=== PATIENT | male | born 1950 | race African-American/Black ===

== ENCOUNTER 2017-11-10 19:59 | Observation (INO) | payer MEDICARE, OTHER ==
[2017-11-10 20:10] VITALS: BP 235/105; PULSE 77; RESP 18; TEMP 98.7; O2SAT 94
[2017-11-10] MEDS ORDERED: SODIUM CHLORIDE 0.9% FLUSH 10 ML FLUSH IVF PRN (20:30)
[2017-11-10] MEDS ORDERED: ASPIRIN 81 MG CHEW TAB PO ONE (20:30)
[2017-11-10] MEDS ORDERED: LABETALOL HCL 100 MG/20 ML VIAL IV PUSH ONE (20:30)
--- NOTE | 2017-11-10 20:31 | PD ---
HPI Chief Complaint: Chest Pain Time Seen by Provider: 20:16 Travel History International Travel<30 days: No Contact w/Intl Traveler<30days: No Traveled to known affect area: No History of Present Illness HPI 67-year-old male with history of hypertension, end-stage renal disease, reported history of CHF, presents for evaluation of chest pain. He reports a prior to arrival he was sitting in the bathtub when he developed a chest tightness which lasted for 30 minutes and resolved prior to this examination. He has never experienced this before. He denies any radiating symptoms, nausea , vomiting, diaphoresis, dizziness, lightheadedness, cough, congestion, fevers, chills, abdominal pain. He reports that he moved here from [facility] 4 days ago. In [facility] he was receiving dialysis Mondays, Wednesdays, Fridays, so his last dialysis was yesterday. Here he is being transitioned to Tuesdays, , Saturdays. He is noted to be hypertensive-he takes hydralazine, carvedilol, and he reports that he has been compliant with his blood pressure regimen. He has no other complaints at this time. [facility] Past Medical History Cardiovascular Problems: Yes (HTN) Social History Alcohol Use: Yes Tobacco Use: No Allergies-Medications (Allergen,Severity, Reaction): Coded Allergies: No Known Allergies (Unverified , 11/10/17) Reported Meds & Prescriptions Reported Meds & Active Scripts Active Reported Carvedilol 25 Mg Tab 25 Mg BID Sensipar (Cinacalcet) 60 Mg Tab 60 Mg PO DAILY Fosrenol (Lanthanum Carbonate) 1,000 Mg Tab 1,000 Mg CHEW TIDPC Hydralazine HCl 25 Mg Tablet 25 Mg PO BID Review of Systems Except as stated in HPI: all other systems reviewed are Neg Physical Exam Narrative GENERAL: Well developed well-nourished male in no acute distress. SKIN: Warm and dry. HEAD: Atraumatic. Normocephalic. EYES: Right pupil round and reactive. 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 Mucous membranes pink and moist. NECK: Trachea midline. No JVD. CARDIOVASCULAR: Regular rate and rhythm. No murmur appreciated. RESPIRATORY: No accessory muscle use. Clear to auscultation. Breath sounds equal bilaterally. GASTROINTESTINAL: Abdomen soft, non-tender, nondistended. Hepatic and splenic margins not palpable. MUSCULOSKELETAL: No obvious deformities. No clubbing. No cyanosis. No edema. NEUROLOGICAL: Awake and alert. No obvious cranial nerve deficits. Motor grossly within normal limits. Normal speech. PSYCHIATRIC: Appropriate mood and affect; insight and judgment normal. Data Data Last Documented VS Vital Signs Date Time Temp Pulse Resp B/P (MAP) Pulse Ox O2 Delivery O2 Flow Rate FiO2 11/10/17 21:12 70 18 180/88 (118) 99 Nasal Cannula 2.00 11/10/17 20:10 98.7 Orders Orders Electrocardiogram (11/10/17 20:24) Basic Metabolic Panel (Bmp) (11/10/17 20:24) Ckmb (Isoenzyme) Profile (11/10/17 20:24) Complete Blood Count With Diff (11/10/17 20:24) Magnesium (Mg) (11/10/17 20:24) Prothrombin Time / Inr (Pt) (11/10/17 20:24) Act Partial Throm Time (Ptt) (11/10/17 20:24) Troponin I (11/10/17 20:24) Ecg Monitoring (11/10/17 20:24) Bilateral Bp Monitoring (11/10/17 20:24) Iv Access Insert/Monitor (11/10/17 20:24) Oximetry (11/10/17 20:24) Oxygen Administration (11/10/17 20:24) Sodium Chloride 0.9% Flush (Ns Flush) (11/10/17 20:30) Chest, Pa & Lat (11/10/17 20:24) Labetalol Inj (Trandate Inj) (11/10/17 20:30) Aspirin Chew (Aspirin Chew) (11/10/17 20:30) Nitroglycerin 2% Oint (Nitroglycerin 2% (11/10/17 20:45) Drug Screen, Random Urine (11/10/17 20:52) CKMB (11/10/17 21:00) CKMB% (11/10/17 21:00) Labetalol Inj (Trandate Inj) (11/10/17 21:48) Admit Order (Ed Use Only) (11/10/17 21:51) Labetalol Inj (Trandate Inj) (11/10/17 22:00) Activity Bed Rest With Brp (11/10/17 21:52) Vital Signs (Adult) Q4H (11/10/17 21:52) Cardiac Rhythm .As Directed (11/10/17 21:52) Notify Dr: Other .PRN (11/10/17 21:52) Notify DrRancho Parameters (11/10/17 21:52) Resp Oxygen Nasal Cannula (11/10/17 ) Ckmb (Isoenzyme) Profile (11/10/17 23:59) Ckmb (Isoenzyme) Profile (11/11/17 02:59) Troponin I (11/10/17 23:59) Troponin I (11/11/17 02:59) Electrocardiogram (11/10/17 23:59) Electrocardiogram (11/11/17 02:59) ^ Obtain (11/10/17 21:52) Sodium Chloride 0.9% Flush (Ns Flush) (11/10/17 22:00) Sodium Chloride 0.9% Flush (Ns Flush) (11/11/17 09:00) Npo After Midnight W/ Po Meds (11/11/17 Breakfast) Labs Laboratory Tests Test 11/10/17 21:00 White Blood Count 5.6 TH/MM3 Red Blood Count 3.50 MIL/MM3 Hemoglobin 10.9 GM/DL Hematocrit 32.7 % Mean Corpuscular Volume 93.5 FL Mean Corpuscular Hemoglobin 31.1 PG Mean Corpuscular Hemoglobin Concent 33.2 % Red Cell Distribution Width 18.4 % Platelet Count 187 TH/MM3 Mean Platelet Volume 8.9 FL Neutrophils (%) (Auto) 65.2 % Lymphocytes (%) (Auto) 16.2 % Monocytes (%) (Auto) 13.1 % Eosinophils (%) (Auto) 4.7 % Basophils (%) (Auto) 0.8 % Neutrophils # (Auto) 3.6 TH/MM3 Lymphocytes # (Auto) 0.9 TH/MM3 Monocytes # (Auto) 0.7 TH/MM3 Eosinophils # (Auto) 0.3 TH/MM3 Basophils # (Auto) 0.0 TH/MM3 CBC Comment DIFF FINAL Differential Comment Prothrombin Time 10.2 SEC Prothromb Time International Ratio 1.0 RATIO Activated Partial Thromboplast Time 26.2 SEC Blood Urea Nitrogen 43 MG/DL Creatinine 10.10 MG/DL Random Glucose 125 MG/DL Calcium Level 9.8 MG/DL Magnesium Level 2.3 MG/DL Sodium Level 140 MEQ/L Potassium Level 4.6 MEQ/L Chloride Level 99 MEQ/L Carbon Dioxide Level 31.4 MEQ/L Anion Gap 10 MEQ/L Estimat Glomerular Filtration Rate 6 ML/MIN Total Creatine Kinase 166 U/L Troponin I 0.05 NG/ML MDM Medical Decision Making Medical Screen Exam Complete: Yes Emergency Medical Condition: Yes Medical Record Reviewed: Yes Differential Diagnosis Angina, acute coronary syndrome, pneumothorax, pericarditis, myocarditis, aortic dissection, pulmonary embolism, hypertensive urgency, hypertensive emergency Narrative Course The patient was placed on ECG monitoring pulse oximetry. Twelve-lead EKG was obtained. Lab work, chest x-ray has been ordered. The patient will be given IV labetalol. He was given nitro paste. Lab work has been reviewed, Hemoglobin is 10.9, creatinine is 10.10, BUN is 43, consistent with his history of end-stage renal disease. Initial cardiac enzymes are negative. Given his risk factors including age, end-stage renal disease, hypertension, At this point in time the plan would be to admit the patient and the chest pain center for serial cardiac enzymes and rule out purposes. He is agreeable. He remains chest pain-free during his hospital stay. Diagnosis Primary Impression: Chest pain Admitting Information Admitting Physician Requests: Paul Hernandez Nov 10, 2017 20:31
[2017-11-10 20:32] VITALS: BP 195/91; PULSE 79; RESP 18; O2SAT 98
[2017-11-10] MEDS ORDERED: NITROGLYCERIN 2% OINT 1 GM PACKET TOP ONE (20:45)
[2017-11-10 21:12] VITALS: BP 180/88; PULSE 70; RESP 18; O2SAT 99
[2017-11-10 21:14] LABS: AUTOMATED NEUTROPHIL # 3.6 TH/MM3 (1.8-7.7); BASOPHIL % 0.8 % (0.0-2.0); EOSINOPHIL # 0.3 TH/MM3 (0-0.4); EOSINOPHIL % 4.7 % (0.0-4.0); HEMATOCRIT 32.7 % (39.0-51.0); HEMOGLOBIN 10.9 GM/DL (13.0-17.0); LYMPH % 16.2 % (9.0-44.0); LYMPHOCYTE # 0.9 TH/MM3 (1.0-4.8); MEAN CELL VOLUME 93.5 FL (80.0-100.0); MEAN CORPUSCULAR HEMOGLOBIN 31.1 PG (27.0-34.0); MEAN CORPUSCULAR HGB CONC 33.2 % (32.0-36.0); MEAN PLATELET VOLUME 8.9 FL (7.0-11.0); MONO % 13.1 % (0.0-8.0); MONOCYTE # 0.7 TH/MM3 (0-0.9); NEUT % 65.2 % (16.0-70.0); PLATELET COUNT 187 TH/MM3 (150-450); RED CELL DISTRIBUTION WIDTH 18.4 % (11.6-17.2); WHITE BLOOD COUNT 5.6 TH/MM3 (4.0-11.0)
[2017-11-10] MEDS ORDERED: FOSR1000 CHEW (21:20)
[2017-11-10] MEDS ORDERED: SENS60TA PO (21:20)
[2017-11-10] MEDS ORDERED: CARV25TA (21:20)
[2017-11-10] MEDS ORDERED: HYDR-3799 PO (21:20)
[2017-11-10 21:27] LABS: PROTHROMBIN TIME - PATIENT 10.2 SEC (9.8-11.6)
[2017-11-10 21:36] LABS: BICARBONATE 31.4 MEQ/L (21.0-32.0); BLOOD UREA NITROGEN 43 MG/DL (7-18); CALCIUM 9.8 MG/DL (8.5-10.1); CHLORIDE 99 MEQ/L (98-107); GLOMERULAR FILTRATION RATE 6 ML/MIN (>89); GLUCOSE,RANDOM 125 MG/DL (74-106); MAGNESIUM 2.3 MG/DL (1.5-2.5); SODIUM (NA) 140 MEQ/L (136-145)
[2017-11-10 21:40] LABS: TROPONIN I 0.05 NG/ML (0.02-0.05)
--- NOTE | 2017-11-10 21:41 | RADRPT ---
EXAM DATE/TIME: 11/10/2017 20:45 [facility] COMPARISON: No previous studies available for comparison. INDICATIONS : Chest pain. MEDICAL HISTORY : None. SURGICAL HISTORY : None. ENCOUNTER: Initial ACUITY: 1 day PAIN SCORE: 10/10 LOCATION: Bilateral chest FINDINGS: PA and lateral views of the chest demonstrate the lungs to be symmetrically aerated without evidence of mass, infiltrate or effusion. The cardiomediastinal contours are unremarkable. Osseous structure s are intact. CONCLUSION: 1. No acute cardiopulmonary disease. Kt Contreras MD on November 10, 2017 at 21:39 Board Certified Radiologist. This report was verified electronically.
[2017-11-10] MEDS ORDERED: LABETALOL HCL 100 MG/20 ML VIAL IV PUSH STA (21:48)
[2017-11-10] MEDS ORDERED: LABETALOL HCL 100 MG/20 ML VIAL IV PUSH PRN (22:00)
[2017-11-10] MEDS ORDERED: hydrALAZINE HCL 20 MG/ML VIAL IV PUSH ONE (22:00)
[2017-11-10] MEDS ORDERED: SODIUM CHLORIDE 0.9% FLUSH 10 ML FLUSH IV FLUSH PRN (22:00)
[2017-11-10 22:30] VITALS: BP 183/88; O2SAT 100
[2017-11-10 22:33] VITALS: BP 167/76; PULSE 73; RESP 18; O2SAT 98
[2017-11-10] MEDS: cloNIDine HCL 0.2 MG TAB PO SCH (22:33)
[2017-11-11] VITALS (7 sets, daily range): BP systolic 153–166; BP diastolic 70–78; PULSE 53–97; RESP 15–20; TEMP 97.5–98; O2SAT 95–99
[2017-11-11 01:03] LABS: TROPONIN I 0.05 NG/ML (0.02-0.05)
[2017-11-11 05:19] LABS: TROPONIN I 0.05 NG/ML (0.02-0.05)
[2017-11-11] MEDS: cloNIDine HCL 0.2 MG TAB PO SCH (06:35)
[2017-11-11] MEDS ORDERED: hydrALAZINE HCL 25 MG TAB PO SCH (09:00)
[2017-11-11] MEDS ORDERED: CARVEDILOL 12.5 MG TAB PO SCH (09:00)
[2017-11-11] MEDS ORDERED: SODIUM CHLORIDE 0.9% FLUSH 10 ML FLUSH IV FLUSH SCH (09:00)
[2017-11-11] MEDS ORDERED: LANTHANUM CARBONATE 500 MG CHEWABLE TABLET CHEW SCH (09:30)
--- NOTE | 2017-11-11 09:52 | HHI.HP ---
HPI Primary Care Physician No Primary Care Physician Chief Complaint Chest pain History of Present Illness This is a 67-year-old male that presents to ED with history of end-stage renal disease and having dialysis on Tuesdays and Saturdays, congestive heart failure, hypertension that presents to ED with complaint of chest discomfort. States that he developed a pressure across the chest 6:00 yesterday evening while eating a bath. It lasted between 30 minutes to an hour. Denies associated shortness of breath, nausea, or diaphoresis. States he had a similar discomfort a couple weeks ago and was diagnosed with congestive heart failure. States he had a normal stress test at that time. Voices compliance of medications. States he is free of chest discomfort at this time. Denies noticeable weight gain. Has not noticed any swelling in his legs. Review of Systems General: Patient denies fevers, chills, and recent travel. HEENT: Patient denies headache, sore throat, difficulty swallowing. Cardiovascular: Has the chest discomfort as mentioned above. Denies sensation of heart beating rapidly or irregularly. No syncope. Respiratory: Denies shortness of breath or inspirational chest discomfort. Denies coughing wheezing or hemoptysis. GI: Patient denies nausea, vomiting, diarrhea, abdominal pain, bloody stools. Musculoskeletal: Patient denies joint pain or edema. Denies calf pain or edema. Neurovascular: Patient denies numbness, tingling, weakness in extremities. Denies headache. Endocrine: Denies polyuria and polydipsia. Hematologic: Denies easy bruising. Skin: Denies rash or itching. 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 Hypertension. Denies hyperlipidemia, diabetes, and known CAD. 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 Reported Medications Reported Meds & Active Scripts Active Reported Carvedilol 25 Mg Tab 25 Mg BID Sensipar (Cinacalcet) 60 Mg Tab 60 Mg PO DAILY Fosrenol (Lanthanum Carbonate) 1,000 Mg Tab 1,000 Mg CHEW TIDPC Hydralazine HCl 25 Mg Tablet 25 Mg PO BID Active Ordered Medications Current Medications Medications (Trade) Dose Ordered Sig/[place]rence Route Start Time Stop Time Status Last Admin (NS Flush) 2 ml UNSCH PRN IVF 11/10/17 20:30 (NS Flush) 2 ml UNSCH PRN IV FLUSH 11/10/17 22:00 (NS Flush) 2 ml BID IV FLUSH 11/11/17 09:00 (Catapres) 0.2 mg Q8HR PO 11/10/17 22:30 11/11/17 06:35 (Coreg) 25 mg BID PO 11/11/17 09:00 (Apresoline) 25 mg BID PO 11/11/17 09:00 (Fosrenol Chew) 1,000 mg TIDPC CHEW 11/11/17 09:30 (Sensipar) 60 mg DAILY PO 11/11/17 10:00 Family History Unknown of his family cardiac history. Social History Quit smoking greater than 5 years ago. Prior that he would smoke proximal half to one pack of cigars daily for 30 years. Denies alcohol or illicit drugs. Physical Exam Vital Signs Vital Signs Date Time Temp Pulse Resp B/P (MAP) Pulse Ox O2 Delivery O2 Flow Rate FiO2 11/11/17 07:19 97.6 58 20 166/75 (105) 99 11/11/17 03:38 98.0 65 17 159/72 (101) 95 11/11/17 03:14 62 11/11/17 00:51 82 11/11/17 00:32 97.5 97 15 153/70 (97) 95 11/10/17 23:40 11/10/17 22:33 73 18 167/76 (106) 98 Room Air 2.00 11/10/17 22:30 100 Nasal Cannula 2.00 11/10/17 21:12 70 18 180/88 (118) 99 Nasal Cannula 2.00 11/10/17 20:32 79 18 195/91 (125) 98 Nasal Cannula 2.00 11/10/17 20:32 94 Nasal Cannula 2.00 11/10/17 20:10 98.7 77 18 235/105 (148) 94 Physical Exam GENERAL: This is a well-nourished, well-developed patient, in no apparent distress. Patient speaks in clear complete sentences. Patient is pleasant. HEENT: Head is atraumatic and normocephalic. Neck is supple without lymphadenopathy and trachea is midline. No JVD or carotid bruits. CARDIOVASCULAR: Regular rate and rhythm without murmurs, gallops, or rubs. RESPIRATORY: Clear to auscultation. Breath sounds equal bilaterally. No wheezes , rales, or rhonchi. Chest wall is nontender. No use of accessory muscles. GASTROINTESTINAL: Abdomen is nontender, nondistended. Abdomen soft. No obvious pulsatile mass or bruit. No CVA tenderness. Strong femoral pulses bilaterally. Normal bowel sounds in all quadrants. MUSCULOSKELETAL: Patient is moving upper and lower extremities freely. No calf tenderness or edema, no Homans sign. Strong pulses in upper and lower extremities. NEUROLOGICAL: Patient is alert and oriented. Cranial nerves 2-12 are grossly intact. No focal deficits and speech is clear. SKIN: No rash and turgor is normal. Laboratory Laboratory Tests Test 11/10/17 21:00 11/11/17 00:20 11/11/17 03:45 White Blood Count 5.6 Red Blood Count 3.50 Hemoglobin 10.9 Hematocrit 32.7 Mean Corpuscular Volume 93.5 Mean Corpuscular Hemoglobin 31.1 Mean Corpuscular Hemoglobin Concent 33.2 Red Cell Distribution Width 18.4 Platelet Count 187 Mean Platelet Volume 8.9 Neutrophils (%) (Auto) 65.2 Lymphocytes (%) (Auto) 16.2 Monocytes (%) (Auto) 13.1 Eosinophils (%) (Auto) 4.7 Basophils (%) (Auto) 0.8 Neutrophils # (Auto) 3.6 Lymphocytes # (Auto) 0.9 Monocytes # (Auto) 0.7 Eosinophils # (Auto) 0.3 Basophils # (Auto) 0.0 CBC Comment DIFF FINAL Differential Comment Prothrombin Time 10.2 Prothromb Time International Ratio 1.0 Activated Partial Thromboplast Time 26.2 Blood Urea Nitrogen 43 Creatinine 10.10 Random Glucose 125 Calcium Level 9.8 Magnesium Level 2.3 Sodium Level 140 Potassium Level 4.6 Chloride Level 99 Carbon Dioxide Level 31.4 Anion Gap 10 Estimat Glomerular Filtration Rate 6 Total Creatine Kinase 166 140 146 Creatine Kinase MB 1.8 1.6 1.3 Troponin I 0.05 0.05 0.05 Result Diagram: 11/10/17209911/10/172099 Imaging Last 48 hours Impressions Chest X-Ray 11/10/172023 Signed Impressions: Service Date/Time: Friday, November 10, 2017 20:45 - CONCLUSION: 1. No acute cardiopulmonary disease. Kt Contreras MD Course EKGs are sinus rhythm without significant ST segment depressions or elevations. Caprini VTE Risk Assessment Caprini VTE Risk Assessment: Mod/High Risk (score >= 2) Caprini Risk Assessment Model Point Value = 1 Point Value = 2 Point Value = 3 Point Value = 5 Age 41-60 Minor surgery BMI > 25 kg/m2 Swollen legs Varicose veins or History of unexplained or recurrent spontaneous Oral contraceptives or hormone replacement Sepsis (< 1 month) Serious lung disease, including pneumonia (< 1 month) Abnormal pulmonary function Acute myocardial infarction Congestive heart failure (< 1 month) History of inflammatory bowel disease Medical patient at bed rest Age 61-74 Arthroscopic surgery Major open surgery (> 45 min) Laparoscopic surgery (> 45 min) Malignancy Confined to bed (> 72 hours) Immobilizing plaster cast Central venous access Age >= 75 History of VTE Family history of VTE Factor V Leiden Prothrombin 30930A Lupus anticoagulant Anticardiolipin antibodies Elevated serum homocysteine Heparin-induced thrombocytopenia Other congenital or acquired thrombophilia Stroke (< 1 month) Elective arthroplasty Hip, pelvis, or leg fracture Acute spinal cord injury (< 1 month) Prophylaxis Regimen Total Risk Factor Score Risk Level Prophylaxis Regimen 0-1 Low Early ambulation 2 Moderate Order ONE of the following: *Sequential Compression Device (SCD) *Heparin 5000 units SQ BID 3-4 Higher Order ONE of the following medications: *Heparin 5000 units SQ TID *Enoxaparin/Lovenox 40 mg SQ daily (WT < 150 kg, CrCl > 30 mL/min) *Enoxaparin/Lovenox 30 mg SQ daily (WT < 150 kg, CrCl > 10-29 mL/min) *Enoxaparin/Lovenox 30 mg SQ BID (WT < 150 kg, CrCl > 30 mL/min) AND/OR *Sequential Compression Device (SCD) 5 or more Highest Order ONE of the following medications: *Heparin 5000 units SQ TID (Preferred with Epidurals) *Enoxaparin/Lovenox 40 mg SQ daily (WT < 150 kg, CrCl > 30 mL/min) *Enoxaparin/Lovenox 30 mg SQ daily (WT < 150 kg, CrCl > 10-29 mL/min) *Enoxaparin/Lovenox 30 mg SQ BID (WT < 150 kg, CrCl > 30 mL/min) AND *Sequential Compression Device (SCD) Assessment and Plan Assessment and Plan * Chest pain: Patient has had serial cardiac enzymes and EKGs for ruling out purposes. He was seen by Dr. Kt Tellez of cardiology in the chest pain center. We were able to obtain records from his chemical stress test dated 10/27 and were read as no scintigraphic evidence of stress-induced ischemia. Inferior wall fixed abnormality probably representing a combination of diaphragm and GI attenuation. Mild left ventricular enlargement with left ventricular ejection fraction calculated at 47%. There will be no further cardiac testing. At this time patient will be discharged home with instructions to follow-up with PCP and nephrology. Return to ED for interval issues. * End-stage renal disease: Patient is scheduled for his dialysis tomorrow, he has dialysis on Tuesdays and Thursday. 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 * Hypertension: Continue medications. Patient is stable at this time. He is agreeable to this plan. Luis Rogers Nov 11, 2017 09:52
--- NOTE | 2017-11-11 09:55 | HHI.DCPOC ---
Discharge Care Plan Diagnosis: (1) Chest pain (2) ESRD (end stage renal disease) (3) Hypertension Goals to Promote Your Health CONTINUE DIALYSIS SCHEDULED. * To prevent worsening of your condition and complications * To maintain your health at the optimal level Directions to Meet Your Goals Take your medications as prescribed Follow your dietary instruction Follow activity as directed Keep your appointments as scheduled Take your immunizations and boosters as scheduled If your symptoms worsen call your PCP, if no PCP go to Urgent Care Center or Emergency Room Smoking is Dangerous to Your Health. Avoid second hand smoke Call the 24-hour hour crisis hotline for domestic abuse at Luis Rogers Nov 11, 2017 09:55
[2017-11-11] MEDS ORDERED: CINACALCET HYDROCHLORIDE 30 MG TAB PO SCH (10:00)
--- NOTE | 2017-11-11 16:02 | EKG ---
Date Performed: 11/11/2017 Time Performed: 00:46:44 PTAGE: 67 years EKG: SINUS BRADYCARDIA VOLTAGE CRITERIA FOR LVH ABNORMAL ECG PREVIOUS TRACING : 11/10/2017 20.34 Since previous tracing, no significant change noted DOCTOR: Kt Tellez Interpretating Date/Time 11/11/2017 16:01:46
--- NOTE | 2017-11-11 16:05 | EKG ---
Date Performed: 11/10/2017 Time Performed: 20:34:03 PTAGE: 67 years EKG: Sinus rhythm POSSIBLE LEFT ATRIAL ENLARGEMENT POSSIBLE LEFT VENTRICULAR HYPERTROPHY ABNORMAL ECG NO PREVIOUS TRACING DOCTOR: Kt Tellez Interpretating Date/Time 11/11/2017 16:02:56
--- NOTE | 2017-11-11 16:06 | EKG ---
Date Performed: 11/11/2017 Time Performed: 05:31:46 PTAGE: 67 years EKG: SINUS BRADYCARDIA VOLTAGE CRITERIA FOR LVH ABNORMAL ECG PREVIOUS TRACING : 11/11/2017 00.46 Since previous tracing, no significant change noted DOCTOR: Kt Tellez Interpretating Date/Time 11/11/2017 16:04:52
== END 2017-11-11 12:52 | disposition home or self-care (01) ==
LOC: NEPE 19:59 → NEDA 21:53 → NEPFCDU 23:58
PROVIDERS: ADMIT Internal Medicine Interventional Cardiology; ATTEND Internal Medicine Interventional Cardiology
DX: R07.89 Other chest pain (principal); I13.2 Hypertensive heart and chronic kidney disease with heart failure and with stage 5 chronic kidney disease, or end stage renal disease; I50.9 Heart failure, unspecified; N18.6 End stage renal disease; R00.1 Bradycardia, unspecified; R94.31 Abnormal electrocardiogram [ECG] [EKG]; Z99.2 Dependence on renal dialysis; Z79.899 Other long term (current) drug therapy; Z90.01 Acquired absence of eye
CPT/HCPCS: 71046; 80048; 82550; 82552; 83735; 84484; 85025; 85610; 85730; 93005; 96374; 96375; 99285; G0378; J0360

== ENCOUNTER 2017-11-29 00:51 | Emergency (ER) | payer MEDICARE, OTHER ==
[~2017-11-29] VITALS: Ht 175.3 cm; Wt 84.0 kg
[~2017-11-29 00:51] MED LIST: CARV25TA; FOSR1000 CHEW; HYDR-3799 PO; SENS60TA PO
[2017-11-29 01:21] VITALS: BP 216/99; PULSE 86; RESP 18; TEMP 98.4; O2SAT 98
[2017-11-29 03:07] VITALS: BP 203/98; PULSE 83; RESP 16; O2SAT 100
[2017-11-29 04:00] VITALS: BP 213/97; PULSE 80; RESP 16; O2SAT 100
[2017-11-29] MEDS ORDERED: ACETAMINOPHEN 325 MG TAB PO ONE (04:30)
[2017-11-29] MEDS ORDERED: CYCLOBENZAPRINE HCL 10 MG TAB PO ONE (04:30)
[2017-11-29 05:44] LABS: ALT (GPT) 14 U/L (12-78)
[2017-11-29 05:46] LABS: ALKALINE PHOSPHATASE 75 U/L (45-117); TOTAL BILIRUBIN ADULT 0.4 MG/DL (0.2-1.0); TOTAL PROTEIN 7.2 GM/DL (6.4-8.2)
[2017-11-29 05:54] LABS: ALBUMIN 3.2 GM/DL (3.4-5.0); AST (GOT) 19 U/L (15-37); BICARBONATE 24.8 MEQ/L (21.0-32.0); BLOOD UREA NITROGEN 31 MG/DL (7-18); CALCIUM 9.6 MG/DL (8.5-10.1); CHLORIDE 101 MEQ/L (98-107); GLOMERULAR FILTRATION RATE 9 ML/MIN (>89); GLUCOSE,RANDOM 88 MG/DL (74-106); SODIUM (NA) 138 MEQ/L (136-145)
[2017-11-29 06:19] LABS: AUTOMATED NEUTROPHIL # 6.4 TH/MM3 (1.8-7.7); BASOPHIL # 0.1 TH/MM3 (0-0.2); BASOPHIL % 0.6 % (0.0-2.0); EOSINOPHIL # 0.3 TH/MM3 (0-0.4); EOSINOPHIL % 2.9 % (0.0-4.0); HEMATOCRIT 30.3 % (39.0-51.0); HEMOGLOBIN 10.3 GM/DL (13.0-17.0); LYMPH % 11.1 % (9.0-44.0); MEAN CELL VOLUME 91.1 FL (80.0-100.0); MEAN CORPUSCULAR HEMOGLOBIN 30.8 PG (27.0-34.0); MEAN CORPUSCULAR HGB CONC 33.8 % (32.0-36.0); MEAN PLATELET VOLUME 8.8 FL (7.0-11.0); MONO % 11.3 % (0.0-8.0); NEUT % 74.1 % (16.0-70.0); PLATELET COUNT 144 TH/MM3 (150-450); RED BLOOD COUNT 3.33 MIL/MM3 (4.50-5.90); RED CELL DISTRIBUTION WIDTH 18.2 % (11.6-17.2); WHITE BLOOD COUNT 8.7 TH/MM3 (4.0-11.0)
--- NOTE | 2017-11-29 06:33 | RADRPT ---
EXAM DATE/TIME: 11/29/2017 05:47 [facility] COMPARISON: No previous studies available for comparison. INDICATIONS : Left groin pain. ORAL CONTRAST: No oral contrast ingested. RADIATION DOSE: 13.58 CTDIvol (mGy) MEDICAL HISTORY : Hypertension. Renal failure, chronic. SURGICAL HISTORY : Colostomy and reversal ENCOUNTER: Initial ACUITY: 1 day PAIN SCALE: 10/10 LOCATION: pelvis TECHNIQUE: Volumetric scanning of the pelvis was performed. Using automated exposure control and adjustment of the mA and/or kV according to patient size, radiation dose was kept as low as reasonably achievable t o obtain optimal diagnostic quality images. DICOM format image data is available electronically for review and comparison. FINDINGS: BOWEL/MESENTERY: The visualized small and large bowel demonstrate no acute abnormality. There is no free fluid. Some d iverticula identified in the descending colon. BLADDER: There is no wall thickening or mass. RETROPERITONEUM: There is no aneurysm or lymphadenopathy. REPRODUCTIVE: Within normal limits. INGUINAL: There is no lymphadenopathy or hernia. MUSCULOSKELETAL: Within normal limits for patient age. Surgical clips in the region of the left lower abdominal quadra nt are probably associated with the reported history of ostomy reversal CONCLUSION: No acute pelvic process to explain current clinical symptoms.. Alber Wong MD on November 29, 2017 at 6:30 Board Certified Radiologist. This report was verified electronically.
[2017-11-29 07:17] VITALS: BP 198/95; PULSE 81; RESP 18; O2SAT 98
[2017-11-29] MEDS ORDERED: CYCL10TA PO (08:05)
--- NOTE | 2017-11-29 08:05 | PD ---
HPI Chief Complaint: Abdominal Pain Time Seen by Provider: 04:10 Travel History International Travel<30 days: No Contact w/Intl Traveler<30days: No Traveled to known affect area: No History of Present Illness HPI Patient is a 67-year-old male who comes in complaining of left groin pain. He says it started today while he was at dialysis. He says he had to repeatedly close the lounge chair with his legs. He denies any direct injury. He denies any lump or rash to the area. He denies any fever or chills. Denies any nausea or vomiting. He did not take anything for pain. Severity is mild to moderate. PFSH Past Medical History Cardiovascular Problems: Yes (HTN) Diminished Hearing: No Hypertension: Yes Inguinal Hernia: Yes Implanted Vascular Access Dvce: Yes (left upper arm fistula ) Renal Failure: Yes Tetanus Vaccination: < 5 Years Influenza Vaccination: Yes Past Surgical History Eye Surgery: Yes (left eye removal ) Genitourinary Surgery: Yes (colostomy reversal) Social History Alcohol Use: Yes (occassional wine) Tobacco Use: No Substance Use: No Allergies-Medications (Allergen,Severity, Reaction): Coded Allergies: No Known Allergies (Unverified , 11/29/17) Reported Meds & Prescriptions Reported Meds & Active Scripts Active Reported Carvedilol 25 Mg Tab 25 Mg BID Sensipar (Cinacalcet) 60 Mg Tab 60 Mg PO DAILY Fosrenol (Lanthanum Carbonate) 1,000 Mg Tab 1,000 Mg CHEW TIDPC Hydralazine HCl 25 Mg Tablet 25 Mg PO BID Review of Systems Except as stated in HPI: all other systems reviewed are Neg General / Constitutional: No: Fever, Chills HENT: No: Headaches, Lightheadedness Cardiovascular: No: Chest Pain or Discomfort Respiratory: No: Shortness of Breath Gastrointestinal: No: Nausea, Vomiting Genitourinary: No: Dysuria Musculoskeletal: Positive: Pain Skin: No Rash, No Change in Pigmentation Physical Exam Narrative GENERAL: Awake and alert, no acute distress. SKIN: Focused skin assessment warm/dry. No rashes or signs of infection. HEAD: Atraumatic. Normocephalic. EYES: Pupils equal and round. No scleral icterus. ENT: No nasal bleeding or discharge. Mucous membranes pink and moist. NECK: Trachea midline. No JVD. CARDIOVASCULAR: Regular rate and rhythm. No murmur appreciated. RESPIRATORY: No accessory muscle use. Clear to auscultation. Breath sounds equal bilaterally. GASTROINTESTINAL: Abdomen soft, non-tender, nondistended. No evidence of hernia. MUSCULOSKELETAL: No obvious deformities. No clubbing. No cyanosis. No edema. Pain with movement of the left hip. NEUROLOGICAL: Awake and alert. No obvious cranial nerve deficits. Motor grossly within normal limits. Normal speech. PSYCHIATRIC: Appropriate mood and affect; insight and judgment normal. Data Data Last Documented VS Vital Signs Date Time Temp Pulse Resp B/P (MAP) Pulse Ox O2 Delivery O2 Flow Rate FiO2 11/29/17 07:17 81 18 198/95 (129) 98 Room Air 11/29/17 01:21 98.4 Orders Orders Complete Blood Count With Diff (11/29/17 04:23) Comprehensive Metabolic Panel (11/29/17 04:23) Ct Pelvis W/O Iv Contrast (11/29/17 ) Acetaminophen (Tylenol) (11/29/17 04:30) Cyclobenzaprine (Flexeril) (11/29/17 04:30) Labs Laboratory Tests Test 11/29/17 04:30 11/29/17 05:10 White Blood Count 8.7 TH/MM3 Red Blood Count 3.33 MIL/MM3 Hemoglobin 10.3 GM/DL Hematocrit 30.3 % Mean Corpuscular Volume 91.1 FL Mean Corpuscular Hemoglobin 30.8 PG Mean Corpuscular Hemoglobin Concent 33.8 % Red Cell Distribution Width 18.2 % Platelet Count 144 TH/MM3 Mean Platelet Volume 8.8 FL Neutrophils (%) (Auto) 74.1 % Lymphocytes (%) (Auto) 11.1 % Monocytes (%) (Auto) 11.3 % Eosinophils (%) (Auto) 2.9 % Basophils (%) (Auto) 0.6 % Neutrophils # (Auto) 6.4 TH/MM3 Lymphocytes # (Auto) 1.0 TH/MM3 Monocytes # (Auto) 1.0 TH/MM3 Eosinophils # (Auto) 0.3 TH/MM3 Basophils # (Auto) 0.1 TH/MM3 CBC Comment DIFF FINAL Differential Comment Blood Urea Nitrogen 31 MG/DL Creatinine 7.20 MG/DL Random Glucose 88 MG/DL Total Protein 7.2 GM/DL Albumin 3.2 GM/DL Calcium Level 9.6 MG/DL Alkaline Phosphatase 75 U/L Aspartate Amino Transf (AST/SGOT) 19 U/L Alanine Aminotransferase (ALT/SGPT) 14 U/L Total Bilirubin 0.4 MG/DL Sodium Level 138 MEQ/L Potassium Level 4.3 MEQ/L Chloride Level 101 MEQ/L Carbon Dioxide Level 24.8 MEQ/L Anion Gap 12 MEQ/L Estimat Glomerular Filtration Rate 9 ML/MIN MDM Medical Decision Making Medical Screen Exam Complete: Yes Emergency Medical Condition: Yes Medical Record Reviewed: Yes Differential Diagnosis Groin strain versus inguinal hernia versus muscle spasm Narrative Course Patient is a 67-year-old male comes in complaining of pain to his left groin. Exam shows pain with movement of the leg. IV established, labs sent. Labs show no acute abnormality's. CT of the pelvis performed shows no acute abnormalities. Patient given pain medicine. He will be discharged with prescription for muscle relaxers. Advised follow-up with his doctor. Advised return to the ED as needed for any worsening symptoms. Diagnosis Primary Impression: Groin strain Qualified Codes: S76.212A - Strain of adductor muscle, fascia and tendon of left thigh, initial encounter Patient Instructions: General Instructions, Groin Strain (ED) Additional Instructions: Take pain medicine as needed. Follow-up with your doctor. Return to the ED as needed for any worsening symptoms. Scripts Cyclobenzaprine (Flexeril) 10 Mg Tab 10 MG PO TID for Muscle Spasm, #10 TAB 0 Refills Prov: Rachel Minaya MD 11/29/17 Disposition: 01 DISCHARGE HOME Condition: Stable Rachel Minaya MD Nov 29, 2017 08:05
== END 2017-11-29 08:52 | disposition home or self-care (01) ==
LOC: NEPE 00:51
DX: S76.212A Strain of adductor muscle, fascia and tendon of left thigh, initial encounter (principal); I12.0 Hypertensive chronic kidney disease with stage 5 chronic kidney disease or end stage renal disease; N18.6 End stage renal disease; X50.3XXA Overexertion from repetitive movements, initial encounter; Z99.2 Dependence on renal dialysis
CPT/HCPCS: 72192; 80053; 85025; 99284

== ENCOUNTER 2018-02-14 07:06 | Inpatient (IN) | payer MEDICARE, OTHER ==
[2018-02-14] VITALS (18 sets, daily range): BP systolic 112–138; BP diastolic 55–72; PULSE 64–86; RESP 16–19; TEMP 98–98.4; O2SAT 96–100
[~2018-02-14] VITALS: Ht 175.3 cm; Wt 83.9 kg
[~2018-02-14 07:06] MED LIST changes: +CYCL10TA PO
[2018-02-14] MEDS ORDERED: ASPIRIN 81 MG CHEW TAB PO ONE (07:45)
[2018-02-14] MEDS ORDERED: SODIUM CHLORIDE 0.9% FLUSH 10 ML FLUSH IVF PRN (07:45)
[2018-02-14 08:14] LABS: AUTOMATED NEUTROPHIL # 6.6 TH/MM3 (1.8-7.7); BASOPHIL # 0.1 TH/MM3 (0-0.2); BASOPHIL % 0.7 % (0.0-2.0); EOSINOPHIL # 0.8 TH/MM3 (0-0.4); EOSINOPHIL % 8.1 % (0.0-4.0); HEMATOCRIT 35.6 % (39.0-51.0); HEMOGLOBIN 11.8 GM/DL (13.0-17.0); LYMPHOCYTE # 1.1 TH/MM3 (1.0-4.8); MEAN CELL VOLUME 94.9 FL (80.0-100.0); MEAN CORPUSCULAR HEMOGLOBIN 31.5 PG (27.0-34.0); MEAN CORPUSCULAR HGB CONC 33.2 % (32.0-36.0); MEAN PLATELET VOLUME 8.8 FL (7.0-11.0); MONO % 9.2 % (0.0-8.0); MONOCYTE # 0.9 TH/MM3 (0-0.9); PLATELET COUNT 290 TH/MM3 (150-450); RED BLOOD COUNT 3.75 MIL/MM3 (4.50-5.90); RED CELL DISTRIBUTION WIDTH 19.4 % (11.6-17.2); WHITE BLOOD COUNT 9.4 TH/MM3 (4.0-11.0)
--- NOTE | 2018-02-14 08:14 | RADRPT ---
EXAM DATE: 02/14/2018 8:08 AM EDT AGE/SEX: 67 years / Male INDICATIONS: Chest pain. CLINICAL DATA: This is the patient's initial encounter. Patient reports that signs and symptoms have been present for 3 days and indicates a pain score of 4/10. MEDICAL/SURGICAL HISTORY: None. None. COMPARISON: No prior [facility] exams available for comparison. FINDINGS: A single AP view of the chest demonstrates the lungs to be symmetrically aerated without evidence of mass, infiltrate or effusion. The cardiomediastinal contours are unremarkable. Osseous structures a re intact. CONCLUSION: Negative examination. Electronically signed by: Shelbi Kc MD 02/14/2018 8:13 AM EDT
[2018-02-14 08:38] LABS: PROTHROMBIN TIME - PATIENT 10.3 SEC (9.8-11.6)
[2018-02-14 08:49] LABS: ALBUMIN 3.1 GM/DL (3.4-5.0); ALKALINE PHOSPHATASE 99 U/L (45-117); ALT (GPT) 15 U/L (12-78); BICARBONATE 27.3 MEQ/L (21.0-32.0); BLOOD UREA NITROGEN 61 MG/DL (7-18); CALCIUM 10.1 MG/DL (8.5-10.1); CHLORIDE 96 MEQ/L (98-107); GLOMERULAR FILTRATION RATE 6 ML/MIN (>89); GLUCOSE,RANDOM 105 MG/DL (74-106); SODIUM (NA) 138 MEQ/L (136-145); TOTAL BILIRUBIN ADULT 0.4 MG/DL (0.2-1.0); TOTAL PROTEIN 8.5 GM/DL (6.4-8.2); TROPONIN I 0.31 NG/ML (0.02-0.05)
[2018-02-14 08:51] LABS: AST (GOT) 38 U/L (15-37)
[2018-02-14 08:52] LABS: CREATININE 10.85 MG/DL (0.60-1.30)
[2018-02-14 08:56] LABS: ACANTHOCYTES OCC (NORMAL); KERATOCYTES OCC (NORMAL)
[2018-02-14] MEDS ORDERED: HEPARIN-D5W 25,000 U/250 ML 250 ML IV PRN (09:15)
--- NOTE | 2018-02-14 10:16 | PD ---
HPI Chief Complaint: Chest Pain Time Seen by Provider: 07:30 Travel History International Travel<30 days: No Contact w/Intl Traveler<30days: No Traveled to known affect area: No History of Present Illness HPI Patient is a 67-year-old male with history of end-stage renal disease, dialyzed Thursday, , and Thursday, last dialyzed yesterday, who comes in complaining of chest pain radiating down to his left arm. He says this is been going on for 2 days, coming and going. He says that he was walking today and that is when the pain came on. He denies any shortness of breath. He says this is happened before when he had too much fluid on his lungs. He denies any nausea or vomiting. He denies fever chills. Severity is mild to moderate. PFSH Past Medical History Cardiovascular Problems: Yes (HTN) Diminished Hearing: No Hypertension: Yes Inguinal Hernia: Yes (as a teenager) Implanted Vascular Access Dvce: Yes (left upper arm fistula ) Immunizations Current: Yes (shingle) Renal Failure: Yes Past Surgical History Eye Surgery: Yes (left eye removal ) Genitourinary Surgery: Yes (colostomy reversal) Social History Alcohol Use: No Tobacco Use: No Substance Use: No Allergies-Medications (Allergen,Severity, Reaction): Coded Allergies: No Known Allergies (Unverified , 02/14/18) Reported Meds & Prescriptions Reported Meds & Active Scripts Active Reported Carvedilol 25 Mg Tab 25 Mg BID Sensipar (Cinacalcet) 60 Mg Tab 60 Mg PO DAILY Fosrenol (Lanthanum Carbonate) 1,000 Mg Tab 1,000 Mg CHEW TIDPC Hydralazine HCl 25 Mg Tablet 25 Mg PO BID Review of Systems Except as stated in HPI: all other systems reviewed are Neg General / Constitutional: No: Fever, Chills HENT: No: Headaches, Lightheadedness Cardiovascular: Positive: Chest Pain or Discomfort Respiratory: No: Shortness of Breath Gastrointestinal: No: Nausea, Vomiting Musculoskeletal: No: Myalgias, Edema Skin: No Rash, No Change in Pigmentation Neurologic: No: Weakness, Dizziness Physical Exam Narrative GENERAL: Awake and alert, in no acute distress. SKIN: Focused skin assessment warm/dry. HEAD: Atraumatic. Normocephalic. EYES: Pupils equal and round. No scleral icterus. ENT: Mucous membranes pink and moist. NECK: Trachea midline. No JVD. CARDIOVASCULAR: Regular rate and rhythm. No murmur appreciated. RESPIRATORY: No accessory muscle use. Clear to auscultation. Breath sounds equal bilaterally. GASTROINTESTINAL: Abdomen soft, non-tender, nondistended. MUSCULOSKELETAL: No obvious deformities. No clubbing. No cyanosis. No edema. NEUROLOGICAL: Awake and alert. No obvious cranial nerve deficits. Motor grossly within normal limits. Normal speech. PSYCHIATRIC: Appropriate mood and affect; insight and judgment normal. Data Data Last Documented VS Vital Signs Date Time Temp Pulse Resp B/P (MAP) Pulse Ox O2 Delivery O2 Flow Rate FiO2 02/14/18 09:07 68 18 130/57 (81) 100 02/14/18 07:51 Room Air 02/14/18 07:14 98.4 Orders Orders Ckmb (Isoenzyme) Profile (02/14/18 07:40) Complete Blood Count With Diff (02/14/18 07:40) Comprehensive Metabolic Panel (02/14/18 07:40) Prothrombin Time / Inr (Pt) (02/14/18 07:40) Act Partial Throm Time (Ptt) (02/14/18 07:40) Troponin I (02/14/18 07:40) Chest, Single Ap (02/14/18 07:40) Ecg Monitoring (02/14/18 07:40) Bilateral Bp Monitoring (02/14/18 07:40) Iv Access Insert/Monitor (02/14/18 07:40) Oximetry (02/14/18 07:40) Oxygen Administration (02/14/18 07:40) Aspirin Chew (Aspirin Chew) (02/14/18 07:45) Sodium Chloride 0.9% Flush (Ns Flush) (02/14/18 07:45) CKMB (02/14/18 07:40) CKMB% (02/14/18 07:40) Heparin Inj (Heparin Inj) (02/14/18 15:15) Heparin Inj (Heparin Inj) (02/14/18 15:15) Heparin-D5w 25,000 U/250 Ml (Heparin-D5w (02/14/18 09:15) Cbc No Diff, Includes Plts (02/17/18 06:00) Act Partial Throm Time (Ptt) (02/14/18 16:14) Occult Blood (Hemoccult) Stool (02/14/18 09:14) Admit Order (Ed Use Only) (02/14/18 ) Labs Laboratory Tests Test 02/14/18 07:40 White Blood Count 9.4 TH/MM3 Red Blood Count 3.75 MIL/MM3 Hemoglobin 11.8 GM/DL Hematocrit 35.6 % Mean Corpuscular Volume 94.9 FL Mean Corpuscular Hemoglobin 31.5 PG Mean Corpuscular Hemoglobin Concent 33.2 % Red Cell Distribution Width 19.4 % Platelet Count 290 TH/MM3 Mean Platelet Volume 8.8 FL Neutrophils (%) (Auto) 70.0 % Lymphocytes (%) (Auto) 12.0 % Monocytes (%) (Auto) 9.2 % Eosinophils (%) (Auto) 8.1 % Basophils (%) (Auto) 0.7 % Neutrophils # (Auto) 6.6 TH/MM3 Lymphocytes # (Auto) 1.1 TH/MM3 Monocytes # (Auto) 0.9 TH/MM3 Eosinophils # (Auto) 0.8 TH/MM3 Basophils # (Auto) 0.1 TH/MM3 CBC Comment AUTO DIFF Differential Comment AUTO DIFF CONFIRMED Acanthocytes OCC Keratocytes OCC Prothrombin Time 10.3 SEC Prothromb Time International Ratio 1.0 RATIO Activated Partial Thromboplast Time 24.5 SEC Blood Urea Nitrogen 61 MG/DL Creatinine 10.85 MG/DL Random Glucose 105 MG/DL Total Protein 8.5 GM/DL Albumin 3.1 GM/DL Calcium Level 10.1 MG/DL Alkaline Phosphatase 99 U/L Aspartate Amino Transf (AST/SGOT) 38 U/L Alanine Aminotransferase (ALT/SGPT) 15 U/L Total Bilirubin 0.4 MG/DL Sodium Level 138 MEQ/L Potassium Level 5.5 MEQ/L Chloride Level 96 MEQ/L Carbon Dioxide Level 27.3 MEQ/L Anion Gap 15 MEQ/L Estimat Glomerular Filtration Rate 6 ML/MIN Total Creatine Kinase 113 U/L Creatine Kinase MB 1.3 NG/ML Troponin I 0.31 NG/ML [facility] Medical Decision Making Medical Screen Exam Complete: Yes Emergency Medical Condition: Yes Medical Record Reviewed: Yes Interpretation(s) ECG shows NSR, no ST elevation Differential Diagnosis ACS vs NSTEMI vs STEMI Narrative Course Patient is a 67 year old male who comes in complaining of chest pain. Exam shows no acute abnormalities. IV established, labs sent. given Aspirin. Labs concerning for elevated troponin. Troponin was 0.05 on previous visit, is 0.31 now. Started on heparin. Last 24 hours Impressions Chest X-Ray 02/14/18 0740 Signed Impressions: CONCLUSION: Negative examination. Admitted for further management. Diagnosis Primary Impression: NSTEMI (non-ST elevated myocardial infarction) Additional Impression: ESRD (end stage renal disease) Admitting Information Admitting Physician Requests: Admit Rachel Minaya MD Feb 14, 2018 10:16
[2018-02-14] MEDS ORDERED: SODIUM CHLORIDE 0.9% FLUSH 10 ML FLUSH IV FLUSH PRN ×2 (10:30→13:15)
[2018-02-14] MEDS ORDERED: MAGNESIUM HYDROXIDE SUSP 30 ML CUP PO PRN (10:30)
[2018-02-14] MEDS ORDERED: SENNOSIDES 8.6 MG TAB PO PRN (10:30)
[2018-02-14] MEDS ORDERED: BISACODYL 10 MG SUPP RECTAL PRN (10:30)
[2018-02-14] MEDS ORDERED: LACTULOSE SYRUP 20 GM/30 ML CUP PO PRN (10:30)
[2018-02-14] MEDS ORDERED: NALOXONE HCL 0.4 MG/ML AMP IV PUSH PRN (10:30)
[2018-02-14] MEDS ORDERED: HEPARIN-NS/PF INJ 1,000 ML ONE ×2 (11:46→12:38)
[2018-02-14] MEDS ORDERED: HEPARIN SODIUM - IV 10,000 UNITS/10 ML VIAL ONE ×2 (12:36→13:02)
--- NOTE | 2018-02-14 12:41 | MB ---
cc: Kj Chavira MD DATE: 02/14/2018 HISTORY OF PRESENT ILLNESS: This is a very pleasant 67-year-old gentleman with end-stage renal failure, who developed moderate to severe chest pain radiating to the left upper extremity yesterday. His troponin is elevated. He is still having chest pain of moderate degree. He otherwise denies any fevers, chills, cough, GI or bleeding, PND, orthopnea, syncope or dizziness. He had dialysis yesterday. PAST MEDICAL HISTORY: As per history of present illness. He also has a history of hypertension, inguinal hernia, left upper arm fistula, shingles, left eye removal, colostomy reversal. SOCIAL HISTORY: Denies tobacco or alcohol use. ALLERGIES: NONE. MEDICATIONS PRIOR TO ADMISSION: 1. Carvedilol 25 b.i.d. 2. Sensipar 60 mg daily. 3. Fosrenol. 4. Hydralazine 25 mg b.i.d. MEDICATIONS IN THE HOSPITAL: 1. Sensipar 60 mg daily. 2. Carvedilol 25 mg b.i.d. 3. Hydralazine 25 mg b.i.d. 4. Heparin bolus and drip. 5. Aspirin 162 mg p.o. x 1. PHYSICAL EXAMINATION: VITAL SIGNS: Blood pressure 118/76, pulse 70, respiratory rate 18, temperature 98.4, sats are 98% on room air. GENERAL: He is alert and oriented x 3, in no acute distress. NECK: Supple. No JVD. No bruit. CARDIOVASCULAR: S1, S2. No murmurs, rubs, gallops. LUNGS: Clear to auscultation bilaterally. ABDOMEN: Soft, nontender, nondistended with positive bowel sounds. EXTREMITIES: No lower extremity edema. LABORATORY DATA: White count 9.4, hemoglobin 11.8, hematocrit 35.6, platelet count 290. INR is 1.0. Sodium 138, potassium 5.5, chloride 96, bicarbonate 27.3, BUN 21, creatinine 0.85. AST is 38, ALT 15. Troponin 0.31. Total CK is 113. Chest x-ray: Negative examination. EKG is not available in the computer. DIAGNOSES: 1. [id number] myocardial infarction. 2. [place] [employer] class IV angina. 3. Hypertension. 4. End-stage renal failure. Due to the ongoing chest pain with elevated troponin, I do think left heart catheterization is urgently necessary. micro lab analyst has been called in on an urgent basis. Otherwise, I agree with aspirin and heparin and Coreg. Further recommendations based on the details of his coronary anatomy. MD KATLIN Flood/TL , 11:32 AM , 12:41 PM
[2018-02-14] MEDS ORDERED: IOHEXOL 350 MG/ML 100 ML BTL (for Cath Lab) OTHER ONE (12:54)
[2018-02-14] MEDS ORDERED: NITROGLYCERIN-D5W 50 MG/250 ML 250 ML ONE (12:56)
[2018-02-14] MEDS ORDERED: CLOPIDOGREL 300 MG TAB ONE (12:56)
[2018-02-14] MEDS ORDERED: CLOPIDOGREL 300 MG TAB PO ONE (13:15)
[2018-02-14] MEDS ORDERED: NITROGLYCERIN-D5W 50 MG/250 ML 250 ML IV PRN (13:15)
[2018-02-14] MEDS ORDERED: MISC INFORMATION XX ONE (13:15)
[2018-02-14] MEDS: LANTHANUM CARBONATE 500 MG CHEWABLE TABLET CHEW SCH ×2 (13:30→18:35)
--- NOTE | 2018-02-14 13:32 | CATHPROC ---
[facility] HIS Report Study Information Study Number Admission Scheduled Start Study Start [id number] Feb 14 2018 10:20AM 02/14/2018 Feb 14 2018 12:02PM Christine Service Cardiac Catheterization Admit Source Facility Department Emergency department [facility] [place] Worker Physician and Clinical Staff Initial MD Chavira, Kj Lace Rolleryi Rinaldi RN, James Lace RollerAlissa Alvarez Recorder Bear Sierra,RT(R) Scrub Mahi Rob,RT(R) Procedures Performed Procedure Location (Site) Vessel Name Coronary Angiograms LCA Left Coronary Coronary Angiograms RCA Right Coronary Drug Eluting Inflatio DIAG Ost Left Coronary L Heart Cath LV Gram-hand inj. 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75 8 INTEGRITY 2.75 8 Used *[id number] 12:45 Pollenizer 30 MISBAH INDEFLATOR Used *[id number] 12:36 [employer]Mindful MEDICAL SHEATH, FR6.5 PRELUDE 11CM FR 6.5 038ACT Used *[id number] 12:02 Pollenizer WIRE, 3MMJ .035 180CM 180CM Used *[id number] 12:02 NAMIC MANIFOLD, 4 PORT * Used *[id number] 12:02 NYCOMED OMNIPAQUE, 350 MG, 150ML 150ML [id number] Used [id number] 12:02 FELIPE MEDICAL BLANKET,WARM AIR CCL * Used *[id number] 12:02 TERUMO MEDICAL SHEATH, FR4 TERUMO (10CM) FR 4 Used *[id number] Equipment Model, Serial, Lot Number and Expiration Data Description Model Number Serial Number Lot Number Expiration Date STENT, 2.75 8 INTEGRITY [id number] 02-10-2019 History: Current Medications Medication Dosage/Unit Route Frequency Last Date/Time Taken Beta Amirah ASA History: Allergies Allergy Reaction No Known Allergies History: Risk Factors Family History of Hypertension Dyslipidemia Previous HI Previous Heart Failure Premature CAD Yes No No No No Prior Valve Prior PCI Prior CABG Surgery No No No Cerebrovascular Peripheral Artery Chronic Lung On Dialysis Diabetes Disease Disease Disease Yes No No No No History: Symptoms/Diagnosis Selection Items Chest pain History: Stress Tests Stress or Imaging Studies Performed No History: Other Disease Selection Items HTN History: Other Current Smoker No Labs Hgb (g/dl) Hct (%) RBC (MIL/MM3) WBC (l/cumm) Platelets (thousands) 11.60-17.00 35.00-51.00 4.00-5.90 4.00-11.00 150.00-450.00 11.8 35.6 3.7 9.4 290 Glucose (mg/dl) BUN (mg/dl) Creatinine (mg/dl) BUN:Creatinine (1:x) 74.00-106.00 7.00-18.00 0.50-1.30 10.00-20.00 105 61 10.8 5.6 Na (meq/l) K (meq/l) Cl (meq/l) CO2 (mmol/L) Ca (mg/dl) 136.00-145.00 3.50-5.10 98.00-107.00 21.00-32.00 8.50-10.10 138 5.5 96 27.3 10.1 PT (sec) PTT (sec) INR (PTT:PT) 9.80-11.60 24.30-30.10 0.90-1.10 10.3 24.5 1 Troponin I (ng/ml) CPK-MB (ng/ML) 0.02-0.05 0.50-3.60 0.31 1.3 Medication Medication Total Dose (Bolus/Oral) Medication Total Dosage/Unit 1% XYLOCAINE 20 mL HEPARIN 8000 units PLAVIX 600 mg Medications (Bolus/Oral) Medication Time Given Dosage/Unit Administered By Reason 1% XYLOCAINE 02/14/2018 12:29:35 PM 20 mL Kj Chavria 20 mL 1% XYLOCAINE given in lab by Kj Chavira in Right Groin via Subcutaneous. HEPARIN 02/14/2018 12:37:56 PM 5000 units James Rinaldi RN 5000 units HEPARIN given in lab by James Rinaldi RN in Right Forearm via Peripheral IV. HEPARIN 02/14/2018 12:49:37 PM 1500 units James Rinaldi RN 1500 units HEPARIN given in lab by James Rinaldi RN via Peripheral IV. HEPARIN 02/14/2018 1:03:53 PM 1500 units James Rinaldi RN 1500 units HEPARIN given in lab by James Rinaldi RN in Right Forearm via Peripheral IV. PLAVIX 02/14/2018 1:04:55 PM 600 mg James Rinaldi RN 600 mg PLAVIX given in lab by James Rinaldi RN via Oral. Medication (Drip) Medication Time Given Dosage/Unit Concentration/Unit Diluent (ml) Solutio n IV Solutions 02/14/2018 12:06:59 PM 0 mL (IV) 500 NaCl .9 IV Solutions given in lab by Alissa Lopez in Right Forearm via Peripheral IV. Pump/Drip Flow = 20 ml/hr using NaCl .9. NITROGLYCERIN DRIP 02/14/2018 12:59:47 PM 50 mcg/min 50 mg 250 D5W 50 mcg/min NITROGLYCERIN DRIP given in lab by James Rinaldi RN via Peripheral IV. Pump/Drip Flow = 15 ml/hr using D5W with a concentration of 50 mg in 250 ml. NITROGLYCERIN DRIP 02/14/2018 1:08:46 PM 100 mcg/min 50 mg 250 D5W 100 mcg/min NITROGLYCERIN DRIP given in lab by James Rinaldi RN via Peripheral IV. Pump/Drip Flow = 30 ml/hr using D5W with a concentration of 50 mg in 250 ml. nitro increased to 100mcg/min from 50 Initial Case Assessment Cardiovascular HR Rhythm NIBP Chest Pain 69 Irregular 146/71 0 Edema Present Skin color Skin None Normal Warm Dry Circulatory - Right Pulses Dorsalis Pedis Femoral 2 2 Scale (0,1,2,3,4,d) Circulatory - Left Pulses Dorsalis Pedis Femoral 2 2 Scale (0,1,2,3,4,d) Neurological State Oriented to time-place- Alert Moves all extremities person Respiration - General Respiration Rate SpO2 (%) O2 (lpm) (B/min) 14 100 0 Final Case Assessment Cardiovascular HR Rhythm NIBP Chest Pain 79 sinus 184/102 0 Edema Present Skin color Skin None Normal Warm Dry Circulatory - Right Pulses Dorsalis Pedis Femoral 2 2 Scale (0,1,2,3,4,d) Circulatory - Left Pulses Dorsalis Pedis Femoral 2 2 Scale (0,1,2,3,4,d) Neurological State Oriented to time-place- Alert Moves all extremities person Respiration - General Respiration Rate SpO2 (%) O2 (lpm) (B/min) 6 100 0 Chronological Log Time Study Chronological Log 12:04:59 Patient arrived via Bed. 12:05:00 Patient Name, D.O.B, / Armband Verified By R.N. 12:05:01 Consent signed by the physician and the patient and verified by the [place] Worker staff. 12:05:02 Pre-op and post- op instructions given; patient acknowledges understanding of instructions. 12:05:03 Verbal Stimulation=2 Physical Stimulation=2 Airway=2 Respiration=2 TOTAL=8. (0=absent, 1=li mited, 2=present) 12:05:04 Presedation assessment performed by [facility] [place] Worker RN. 12:05:13 Patient has been NPO for Less than 6Hrs. 12:05:16 Skin Breakdown- none per patient. 12:05:19 Patient Warmer Placed on the Table. 12:05:20 David Prominences Protected 12:05:21 A # 20 IV was noted in the Forearm (right). Grade = 0 IV Solutions given in lab by Alissa Lopez in Right Forearm via Peripheral IV. Pump/Drip Flow = 20 ml/hr using NaCl 12:06:59 .9. 12:08:58 History and physical on the chart or being dictated. Assessment: Initial Case, HR=69 BPM, Rhythm=Irregular, NYZE=263/71 mmhg, Chest Pain=0, Edema=No ne, Color=Normal, Skin = Warm, Dry Right Pulses: Jerson Ped=2, Femoral=2 12:08:59 Left Pulses: Jerson Ped=2, Femoral=2 Neurological: State=Alert, Ox3, LANCE Respiration: Resp=14 B/min, GdT4=697 %, O2=0 lpm 12:10:17 MD arrived. Vitals capture started with the following parameters, Patient=Adult, Interval=5 min, Initial Pr rbigtj=929 mmHg, 12:10:20 Deflation Rate=5 mmHg, Cuff placed on Right Arm 12:11:02 HR=77 bpm, ZSIF=881/71 mmhg, EfK2=019.0 %, Resp=12 B/min, Pain=0, Radha=10, Fofana=2 12:15:42 Bilateral groins prepped with 2% chlorhexidine, and draped after a 3 minute waiting time. 12:16:01 HR=77 bpm, GFVB=040/68 mmhg, SpO2=96.0 %, Resp=13 B/min, Pain=0, Radha=10, Fofana=2 12:19:17 Reference ECG taken 12:20:14 Pressure channel 1 zeroed. 12:21:00 HR=68 bpm, RXAC=854/72 mmhg, SpO2=97.0 %, Resp=15 B/min, Pain=0, Radha=10, Fofana=2 12:26:01 HR=67 bpm, BQCX=588/66 mmhg, SpO2=97.0 %, Resp=15 B/min, Pain=0, Radha=10, Fofana=2 Time Out. Correct patient, correct procedure, correct physician, labs, allergies, and equipment verified with propagator laborer 12:29:07 team present. Fire risk assesment completed (see hard stop sheet for coding). Time Out Conc urred by MD and individual staff in procedure. 12:29:30 Case Start 12:29:35 20 mL 1% XYLOCAINE given in lab by Kj Chavira in Right Groin via Subcutaneous. 12:30:39 Access site was Right Femoral Artery. 12:30:45 A SHEATH, FR4 TERUMO (10CM) FR 4 was advanced into the Fem Art (right) using the Percutaneo us technique. 12:31:02 HR=68 bpm, PJNE=086/67 mmhg, InB5=585.0 %, Resp=12 B/min, Pain=0, Radha=10, Fofana=2 12:31:17 Activated Clotting Time Drawn A JR 4.0 INFINITI CATHETER FR 4 was advanced over a wire. OMNIPAQUE, 350 MG, 150ML 150ML was us ed for 12:31:31 injections. Recorded Pressure: LV, HR=78, Condition=Condition 1 12:32:22 (Left Ventricle) LV 130/6/10 12:32:24 The LV was manually injected with 8 cc's and visualized. OMNIPAQUE, 350 MG, 150ML 150ML use d. Recorded Pressure: LV, Ao, HR=70, Condition=Condition 1 12:32:46 (Left Ventricle) LV 129/3/9, (Aorta) Ao 134/55/86 12:33:17 The RCA was injected and visualized at various angles. OMNIPAQUE, 350 MG, 150ML 150ML used . 12:33:26 Catheter was removed A JL 4.0 INFINITI CATHETER FR 4 was advanced over a wire. OMNIPAQUE, 350 MG, 150ML 150ML was us ed for 12:33:57 injections. 12:34:11 ACT (Normal Range 90-180) = 148 12:34:25 The LCA was injected and visualized at various angles. OMNIPAQUE, 350 MG, 150ML 150ML used . Recorded Pressure: Ao, HR=69, Condition=Condition 1 12:34:27 (Aorta) Ao 127/59/86 12:35:08 Catheter was removed A SHEATH, FR6.5 PRELUDE 11CM FR 6.5 was exchanged in the Fem Art (right). This was necessary in order to 12:35:50 accomodate a larger catheter. 12:36:01 HR=71 bpm, LXLG=565/68 mmhg, SpO2=96.0 %, Resp=20 B/min, Pain=0, Radha=10, Fofana=2 A XB 3.5 GUIDE CATHETER FR 6 was advanced over a wire. OMNIPAQUE, 350 MG, 150ML 150ML was used for 12:37:47 injections. 12:37:56 5000 units HEPARIN given in lab by James Rinaldi RN in Right Forearm via Peripheral IV. 12:40:27 A WIRE, [employer] PROWATER 180CM 180CM was inserted via Fem Art (right). 12:41:04 HR=70 bpm, YYIM=976/76 mmhg, SpO2=97.0 %, Resp=15 B/min, Pain=0, Radha=10, Fofana=2 12:41:21 Interventional wire has crossed the lesion 12:42:03 A WIRE, ASAHI PROWATER 180CM 180CM was inserted via Fem Art (right). 12:44:07 A BALLOON, 3.0 X 10MM EUPHORA 10MM was inserted over WIRE, ASAHI PROWATER 180CM 180CM via t he DIAG Ost. A BALLOON, 3.0 X 10MM EUPHORA 10MM over a WIRE, ASAHI PROWATER 180CM 180CM in the DIAG Ost was inflated 12:44:15 using a 30 MISBAH INDEFLATOR at 8 misbah for 10 sec. A BALLOON, 3.0 X 10MM EUPHORA 10MM over a WIRE, ASAHI PROWATER 180CM 180CM in the DIAG Ost was inflated 12:45:04 using a 30 MISBAH INDEFLATOR at 10 misbah for 10 sec. 12:45:25 Balloon Removed. 12:46:05 HR=73 bpm, UYKP=813/80 mmhg, JxW8=768.0 %, Resp=13 B/min, Pain=0, Radha=10, Fofana=2 A BALLOON, 3.0 X 10MM EUPHORA 10MM over a WIRE, ASAHI PROWATER 180CM 180CM in the DIAG Ost was inflated 12:46:19 using a 30 MISBAH INDEFLATOR at 10 misbah for 10 sec. A BALLOON, 3.0 X 10MM EUPHORA 10MM over a WIRE, ASAHI PROWATER 180CM 180CM in the DIAG Ost was inflated 12:46:30 using a 30 MISBAH INDEFLATOR at 15 misbah for 14 sec. 12:47:37 Balloon Removed. 12:49:03 Wire removed 12:49:08 Wire removed 12:49:37 1500 units HEPARIN given in lab by James Rinaldi RN via Peripheral IV. 12:49:53 A WIRE, ASAHI PROWATER 180CM 180CM was inserted via Fem Art (right). 12:51:21 Interventional wire has crossed the lesion 12:51:46 A WIRE, ASAHI PROWATER 180CM 180CM was inserted via Fem Art (right). 12:51:51 HR=82 bpm, CVKQ=195/98 mmhg, SpO2=99.0 %, Resp=10 B/min, Pain=0, Radha=10, Fofana=2 A STENT, 2.75 8 INTEGRITY 2.75 8 was advanced through a XB 3.5 GUIDE CATHETER FR 6 over a WIRE, ASAHI 12:53:37 PROWATER 180CM 180CM. A STENT, 2.75 8 INTEGRITY 2.75 8 was deployed using a 30 MISBAH INDEFLATOR at 9 atmospheres for 10 seconds in 12:53:39 the DIAG Ost. 12:54:56 The LCA was injected and visualized at various angles. OMNIPAQUE, 350 MG, 150ML 150ML used . 12:54:58 Case End 12:55:24 Wire removed 12:: Wire removed 12:: Catheter was removed 12:55:56 Activated Clotting Time Drawn 12:56:52 HR=85 bpm, YLYX=442/98 mmhg, EvR7=914.0 %, Resp=11 B/min, Pain=0, Radha=10, Fofana=2 12:58:16 In the Fem Art (right) the SHEATH, FR6.5 PRELUDE 11CM FR 6.[address] by Mahi Rob RT(R). 12:58:25 No case complications noted. 12:58:27 Cine recording checked. 12:59:37 Bedside Report will be given. 12:59:40 A Left Heart Cath was performed. 50 mcg/min NITROGLYCERIN DRIP given in lab by James Rinaldi RN via Peripheral IV. Pump/Drip Flow = 15 ml/hr using 12:59:47 D5W with a concentration of 50 mg in 250 ml. 13:00:20 ACT (Normal Range 90-180) = 241 13:01:14 HR=82 bpm, NQJZ=606/104 mmhg, UyN3=938.0 %, Resp=8 B/min, Pain=0, Radha=10, Fofana=2 13:03:53 1500 units HEPARIN given in lab by James Rinaldi RN in Right Forearm via Peripheral IV. 13:04:55 600 mg PLAVIX given in lab by James Rinaldi RN via Oral. 13:05:28 A Left Heart Cath was performed. Assessment: Final Case, HR=79 BPM, Rhythm=sinus, TXTE=137/102 mmhg, Chest Pain=0, Edema=None, Color=Normal, Skin = Warm, Dry Right Pulses: Jerson Ped=2, Femoral=2 13:05:42 Left Pulses: Jerson Ped=2, Femoral=2 Neurological: State=Alert, Ox3, LANCE Respiration: Resp=6 B/min, KtU1=061 %, O2=0 lpm 13:06:16 HR=78 bpm, HSIB=489/102 mmhg, IjP4=103.0 %, Resp=3 B/min, Pain=0, Radha=10, Fofana=2 13:07:02 Implantable Device card placed in patient's chart. 100 mcg/min NITROGLYCERIN DRIP given in lab by James Rinaldi RN via Peripheral IV. Pump/Drip Fl ow = 30 ml/hr using 13:08:46 D5W with a concentration of 50 mg in 250 ml. nitro increased to 100mcg/min from 50 13:09:40 Activated Clotting Time Drawn 13:11:17 HQGX=685/93 mmhg, XcX7=920.0 %, Pain=0, Radha=10, Fofana=2 13:13:31 Vitals capture stopped. 13:13:37 ACT (Normal Range 90-180) = 311 13:14:[address] [facility] End Study - Contrast Media Used In Study Contrast Total Opened (mL) Total Used (mL) Total Wasted (mL) Omnipaque 150 100 50 End Study - Maximum Contrast Load Max Contrast Load (mL) 37.5 End Study - Radiation Exposure Fluoro Time (minutes) 7.6 End Study - Patient Disposition Complications Transferred To Interventional Outcome No Telemetry Bed successful
--- NOTE | 2018-02-14 14:18 | HHI.HP ---
HPI Service [facility] Primary Care Physician Zack Salinas, DO Admission Diagnosis NSTEMI, ESRD Diagnoses: Chief Complaint: chest pain Travel History International Travel<30 Days: No Contact w/Intl Traveler <30 Da: No Traveled to Known Affected Are: No History of Present Illness Patient is a 67-year-old male with history of end-stage renal disease, dialyzed Thursday, , and Thursday, last dialyzed yesterday, HTN, who comes in complaining of chest pain radiating down to his left arm. He says this is been going on for 2 days, coming and going. He says that he was walking today and that is when the pain came on. He denies any shortness of breath, palpitations , diaphoresis or nausea associated. He says this is happened before when he had too much fluid on his lungs. He denies any nausea or vomiting. He denies fever chills. Severity is mild to moderate. Patient is noted with elevated trop. Cardiology consulted and patient is taken to the cathode builder Review of Systems Except as stated in HPI: all other systems reviewed are Neg Past Family Social History Past Medical History HTN ESRD ( on HD TTS) Past Surgical History Colostomy reversal, hernia repair as a teenager, left arm fistula left eye removal after accident Reported Medications Reported Meds & Active Scripts Active Reported Carvedilol 25 Mg Tab 25 Mg BID Sensipar (Cinacalcet) 60 Mg Tab 60 Mg PO DAILY Fosrenol (Lanthanum Carbonate) 1,000 Mg Tab 1,000 Mg CHEW TIDPC Hydralazine HCl 25 Mg Tablet 25 Mg PO BID Allergies: Coded Allergies: No Known Allergies (Unverified , 02/14/18) Family History Father and sister with ESRD on HD Mother cancer unspecified Social History Alcohol Use: No Tobacco Use: No. Quit more than 40 years ago Substance Use: No Physical Exam Vital Signs Vital Signs Date Time Temp Pulse Resp B/P (MAP) Pulse Ox O2 Delivery O2 Flow Rate FiO2 02/14/18 13:08 21 02/14/18 13:00 77 184/102 6/3/18 12:02 02/14/18 11:07 70 18 118/55 (76) 98 Room Air 02/14/18 09:07 68 18 130/57 (81) 100 02/14/18 07:51 97 Room Air 02/14/18 07:51 97 Room Air 02/14/18 07:47 02/14/18 07:34 65 19 115/56 (75) 97 Room Air 02/14/18 07:25 71 19 96 Room Air 02/14/18 07:14 98.4 67 16 112/58 (76) 97 Physical Exam GENERAL: This is a well-nourished, well-developed patient, in no apparent distress. SKIN: No rashes, ecchymoses or lesions. Cool and dry. HEAD: Atraumatic. Normocephalic. No temporal or scalp tenderness. EYES: Pupils equal round and reactive. Extraocular motions intact. No scleral icterus. No injection or drainage. ENT: Nose without bleeding, purulent drainage or septal hematoma. Throat without erythema, tonsillar hypertrophy or exudate. Uvula midline. Airway patent. NECK: Trachea midline. No JVD or lymphadenopathy. Supple, nontender, no meningeal signs. CARDIOVASCULAR: Regular rate and rhythm without murmurs, gallops, or rubs. RESPIRATORY: Clear to auscultation. Breath sounds equal bilaterally. No wheezes , rales, or rhonchi. GASTROINTESTINAL: Abdomen soft, non-tender, nondistended. No hepato-splenomegaly , or palpable masses. No guarding. MUSCULOSKELETAL: Extremities without clubbing, cyanosis, or edema. No joint tenderness, effusion, or edema noted. No calf tenderness. Negative Homans sign bilaterally. NEUROLOGICAL: Awake and alert. Cranial nerves II through XII intact. Motor and sensory grossly within normal limits. Five out of 5 muscle strength in all muscle groups. Normal speech. Laboratory Laboratory Tests Test 02/14/18 07:40 02/14/18 11:08 White Blood Count 9.4 Red Blood Count 3.75 Hemoglobin 11.8 Hematocrit 35.6 Mean Corpuscular Volume 94.9 Mean Corpuscular Hemoglobin 31.5 Mean Corpuscular Hemoglobin Concent 33.2 Red Cell Distribution Width 19.4 Platelet Count 290 Mean Platelet Volume 8.8 Neutrophils (%) (Auto) 70.0 Lymphocytes (%) (Auto) 12.0 Monocytes (%) (Auto) 9.2 Eosinophils (%) (Auto) 8.1 Basophils (%) (Auto) 0.7 Neutrophils # (Auto) 6.6 Lymphocytes # (Auto) 1.1 Monocytes # (Auto) 0.9 Eosinophils # (Auto) 0.8 Basophils # (Auto) 0.1 CBC Comment AUTO DIFF Differential Comment AUTO DIFF CONFIRMED Acanthocytes OCC Keratocytes OCC Prothrombin Time 10.3 Prothromb Time International Ratio 1.0 Activated Partial Thromboplast Time 24.5 Blood Urea Nitrogen 61 Creatinine 10.85 Random Glucose 105 Total Protein 8.5 Albumin 3.1 Calcium Level 10.1 Alkaline Phosphatase 99 Aspartate Amino Transf (AST/SGOT) 38 Alanine Aminotransferase (ALT/SGPT) 15 Total Bilirubin 0.4 Sodium Level 138 Potassium Level 5.5 Chloride Level 96 Carbon Dioxide Level 27.3 Anion Gap 15 Estimat Glomerular Filtration Rate 6 Total Creatine Kinase 113 Creatine Kinase MB 1.3 Troponin I 0.31 0.27 Result Diagram: 02/14/1873902/14/18 07 Imaging Last Impressions Chest X-Ray 02/14/18 0740 Signed Impressions: CONCLUSION: Negative examination. Caprini VTE Risk Assessment Caprini VTE Risk Assessment: Mod/High Risk (score >= 2) Caprini Risk Assessment Model Point Value = 1 Point Value = 2 Point Value = 3 Point Value = 5 Age 41-60 Minor surgery BMI > 25 kg/m2 Swollen legs Varicose veins or History of unexplained or recurrent spontaneous Oral contraceptives or hormone replacement Sepsis (< 1 month) Serious lung disease, including pneumonia (< 1 month) Abnormal pulmonary function Acute myocardial infarction Congestive heart failure (< 1 month) History of inflammatory bowel disease Medical patient at bed rest Age 61-74 Arthroscopic surgery Major open surgery (> 45 min) Laparoscopic surgery (> 45 min) Malignancy Confined to bed (> 72 hours) Immobilizing plaster cast Central venous access Age >= 75 History of VTE Family history of VTE Factor V Leiden Prothrombin [id number] Lupus anticoagulant Anticardiolipin antibodies Elevated serum homocysteine Heparin-induced thrombocytopenia Other congenital or acquired thrombophilia Stroke (< 1 month) Elective arthroplasty Hip, pelvis, or leg fracture Acute spinal cord injury (< 1 month) Prophylaxis Regimen Total Risk Factor Score Risk Level Prophylaxis Regimen 0-1 Low Early ambulation 2 Moderate Order ONE of the following: *Sequential Compression Device (SCD) *Heparin 5000 units SQ BID 3-4 Higher Order ONE of the following medications: *Heparin 5000 units SQ TID *Enoxaparin/Lovenox 40 mg SQ daily (WT < 150 kg, CrCl > 30 mL/min) *Enoxaparin/Lovenox 30 mg SQ daily (WT < 150 kg, CrCl > 10-29 mL/min) *Enoxaparin/Lovenox 30 mg SQ BID (WT < 150 kg, CrCl > 30 mL/min) AND/OR *Sequential Compression Device (SCD) 5 or more Highest Order ONE of the following medications: *Heparin 5000 units SQ TID (Preferred with Epidurals) *Enoxaparin/Lovenox 40 mg SQ daily (WT < 150 kg, CrCl > 30 mL/min) *Enoxaparin/Lovenox 30 mg SQ daily (WT < 150 kg, CrCl > 10-29 mL/min) *Enoxaparin/Lovenox 30 mg SQ BID (WT < 150 kg, CrCl > 30 mL/min) AND *Sequential Compression Device (SCD) Assessment and Plan Assessment and Plan Patient is a pleasant 67 yo AA male with history of end-stage renal disease, dialyzed Thursday, , and Thursday, last dialyzed yesterday, HTN, who comes in complaining of chest pain radiating down to his left arm. NSTEMI Elevated trop trending up on admission. Trend trops and EKG. EKG reviewed and findings discussed with ED physician there is no signs of ischemia Started on heparin drip, ASA and coreg Cardiology consult, seen by Dr Turcios, plan for cardiac cath ESRD on HD TTS Consult nephrology DVT ppx scd/teds/ on heparin drip Discussed Condition With pt, nurse, ED physician Physician Certification 2 Midnight Certification Type: Admission for Inpatient Services Order for Inpatient Services The services are ordered in accordance with Medicare regulations or non- Medicare payer requirements, as applicable. In the case of services not specified as inpatient-only, they are appropriately provided as inpatient services in accordance with the 2-midnight benchmark. Estimated LOS (days): 3 days is the estimated time the patient will need to remain in the hospital, assuming treatment plan goals are met and no additional complications. Post-Hospital Plan: Home Nathalie Higuera MD Feb 14, 2018 14:18
--- NOTE | 2018-02-14 15:07 | MA ---
cc: Kj Chavira MD DATE: 02/14/2018 PROCEDURE PERFORMED: Left heart catheterization, left ventriculography, coronary angiography, PCI bare-metal stent of the ostial first diagonal artery. INDICATIONS FOR PROCEDURE: Non-STEMI. [place] [employer] class IV angina, coronary artery disease, end-stage renal failure, hypertension. PROCEDURE: The patient was brought to the cardiac catheterization laboratory, prepped and draped in the usual sterile fashion. 10 mL of 1% lidocaine was used to locally anesthetize the right common femoral artery. A 4-Guinean sheath was placed in the right common femoral artery. 4-[place]ine[place] JR4 and JL4 catheters were used to perform the left and right coronary angiography, left ventriculography. FINDINGS: LV pressure is 135/5-8. Ejection fraction 45% and the anterolateral wall appears to be at least mildly hypokinetic. LV pressure is 135/5-8. The right coronary artery is dominant. It is relatively small, reference vessel diameter 2.5-2.75 mm. No focal stenosis. Some possible mild luminal irregularity in the mid to distal segment up to 5-10% angiographically. Left main coronary artery is fibrocalcific fluoroscopically. No significant disease angiographically. It is a large, probably 5-1/2-6 mm reference vessel diameter. Left circumflex vessel is a large vessel, reference vessel diameter at least 4-1/2 to possibly 5 mm. Mild disease in the proximal segment up to 20-30% angiographically. It gives off a small first obtuse marginal vessel, reference vessel diameter 2 mm. No significant disease angiographically. Second obtuse marginal vessel comes off the mid AV groove left circumflex, reference vessel diameter 3 mm. No significant disease angiographically. There is a moderate size posterolateral artery off the distal circumflex. Reference vessel diameter 2.5 mm. No significant disease angiographically. LAD is fibrocalcific fluoroscopically throughout its proximal mid segment with mild diffuse disease in the mid segment up to 30% angiographically. There is a moderate to large first diagonal artery with an ostial 95% stenosis. Initial ACT was 178 and additional 60 units per kilo of heparin was given. Second ACT was 235. An additional 1500 units of heparin was given. Final ACT pending at the time of dictation. A 6-[place]inean XB 3.5 guide, 0.014 [place] guidewire was placed into the ostial first diagonal artery and then a second wire was placed into the distal LAD to protect the LAD. I did 3 inflations with a 30 10 Euphora balloon of 8-15 atmospheres. There was consistent recoiling of the stenosis back to an 80%. Therefore, I did think it was medically necessary to place a stent there as the patient was having severe chest pain. Still angulation off the LAD was of about 70 degrees. At that segment, the LAD was a 3.75 mm vessel. Therefore, a 27 58 Integrity stent was placed at the ostial first diagonal stenosis, deployed 1 inflation at 9 atmospheres for 20 seconds. Stenosis went from 95% to 0 percent with SALAZAR 3 flow and there is no compromise of the LAD. CONCLUSION: 1. [id number] myocardial infarction, culprit 95% stenosis in the ostial first diagonal artery as detailed above. 2. Otherwise, mild 3-vessel coronary artery disease in a right dominant system, as detailed above. 3. Moderate to severe fibrocalcification in the left main and proximal mid LAD, as detailed above. 4. Mild left ventricular systolic dysfunction, EF of 45% with at least mild hypokinesis of the anterolateral wall. 5. Successful PCI bare metal stent of the ostial diagonal artery from 95% to 0 percent with SALAZAR 3 flow. RECOMMENDATIONS: 1. Recommend Plavix 600 mg p.o. load, then 75 mg a day for 12-15 months, aspirin 162 mg daily indefinitely. 2. Will check fasting lipids CK and treat to NCEP guidelines. MD KATLIN Flood/TL , 01:03 PM , 03:06 PM
[2018-02-14] MEDS ORDERED: HEPARIN SODIUM - IV 10,000 UNITS/10 ML VIAL IV PUSH PRN ×2 (15:15)
--- NOTE | 2018-02-14 15:49 | EKG ---
Date Performed: 02/14/2018 Time Performed: 07:34:27 PTAGE: 67 years EKG: Sinus rhythm POSSIBLE LEFT ATRIAL ENLARGEMENT POSSIBLE LEFT VENTRICULAR HYPERTROPHY NONSPECIFIC T-WAVE ABNORMALIT Y ABNORMAL ECG PREVIOUS TRACING 11/11/17 Inferior T-wave changes are new. DOCTOR: Edward Cruz Interpretating Date/Time 02/14/2018 15:49:15
--- NOTE | 2018-02-14 15:50 | EKG ---
Date Performed: 02/14/2018 Time Performed: 11:20:58 PTAGE: 67 years EKG: Sinus rhythm WITH OCCASIONAL VENTRICULAR PREMATURE COMPLEXES POSSIBLE LEFT ATRIAL ENLARGEMENT POSSIBLE LEFT VENTR ICULAR HYPERTROPHY NONSPECIFIC T-WAVE ABNORMALITY ABNORMAL ECG PREVIOUS TRACING : 11/11/2017 05.31 Since previous tracing, T-wave changes inferiorly have reso lved. PVCs are new. DOCTOR: Edward Cruz Interpretating Date/Time 02/14/2018 15:49:56
[2018-02-14] MEDS: SODIUM CHLORIDE 0.9% FLUSH 10 ML FLUSH IV FLUSH SCH ×2 (21:00→21:44)
[2018-02-14] MEDS: DOCUSATE SODIUM 50 MG/SENNA 8.6 MG TAB PO SCH (21:00)
[2018-02-14] MEDS: hydrALAZINE HCL 25 MG TAB PO SCH (21:52)
[2018-02-14] MEDS: CARVEDILOL 12.5 MG TAB PO SCH (21:54)
[2018-02-15] VITALS (19 sets, daily range): BP systolic 135–143; BP diastolic 62–81; PULSE 60–76; RESP 16–18; TEMP 98–98.1; O2SAT 94–99
[2018-02-15 06:42] LABS: AUTOMATED NEUTROPHIL # 6.2 TH/MM3 (1.8-7.7); BASOPHIL # 0.1 TH/MM3 (0-0.2); BASOPHIL % 0.7 % (0.0-2.0); EOSINOPHIL # 1.1 TH/MM3 (0-0.4); EOSINOPHIL % 11.3 % (0.0-4.0); HEMATOCRIT 34.1 % (39.0-51.0); HEMOGLOBIN 11.1 GM/DL (13.0-17.0); MEAN CELL VOLUME 95.3 FL (80.0-100.0); MEAN CORPUSCULAR HEMOGLOBIN 31.1 PG (27.0-34.0); MEAN CORPUSCULAR HGB CONC 32.7 % (32.0-36.0); MEAN PLATELET VOLUME 8.6 FL (7.0-11.0); PLATELET COUNT 250 TH/MM3 (150-450); RED BLOOD COUNT 3.58 MIL/MM3 (4.50-5.90); WHITE BLOOD COUNT 9.3 TH/MM3 (4.0-11.0)
[2018-02-15 07:02] LABS: ALBUMIN 3.1 GM/DL (3.4-5.0); BICARBONATE 29.6 MEQ/L (21.0-32.0); CALCIUM 10.2 MG/DL (8.5-10.1); CREATININE 9.74 MG/DL (0.60-1.30); DIRECT BILIRUBIN ADULT 0.1 MG/DL (0.0-0.2)
[2018-02-15 07:04] LABS: CHOLESTEROL/ HDL RATIO 3.63 RATIO; HDL CHOLESTEROL 40.2 MG/DL (40.0-60.0); INDIRECT BILIRUBIN 0.3 MG/DL (0.0-0.8); TOTAL BILIRUBIN ADULT 0.4 MG/DL (0.2-1.0); TOTAL PROTEIN 7.9 GM/DL (6.4-8.2)
--- NOTE | 2018-02-15 08:46 | PD.CONS ---
HPI Service Nephrology Consult Requested By Reason for Consult ESRD Primary Care Physician Zack Salinas, DO History of Present Illness Mr. Mancuso is a 67 year old male with history of hypertension and ESRD who is on hemodialysis TTS was admitted for chest pain. Chest pain was left sided, radiated to his left arm. He was seen in the ER with these symptoms , mild elevation in Troponin was noted along with some T wave changes in inferior leads. 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 He will be on Plavix. Patient was dialyzed yesterday after the catheterization. Review of Systems Constitutional: COMPLAINS OF: Fatigue Cardiovascular: COMPLAINS OF: Chest pain Past Family Social History Allergies: Coded Allergies: No Known Allergies (Unverified , 02/14/18) Past Medical History Hypertension ESRD Reported Medications Carvedilol 25 Mg Tab 25 Mg BID Sensipar (Cinacalcet) 60 Mg Tab 60 Mg PO DAILY Fosrenol (Lanthanum Carbonate) 1,000 Mg Tab 1,000 Mg CHEW TIDPC Hydralazine HCl 25 Mg Tablet 25 Mg PO BID Active Ordered Medications Current Medications Medications (Trade) Dose Ordered Sig/Lawrence Route Start Time Stop Time Status Last Admin (NS Flush) 2 ml UNSCH PRN IVF 02/14/18 07:45 02/14/18 07:57 (Heparin Inj) 5,000 units UNSCH PRN IV PUSH 02/14/18 15:15 (Heparin Inj) 2,500 units UNSCH PRN IV PUSH 02/14/18 15:15 Heparin Sodium/ Dextrose 250 ml @ 10 mls/hr TITRATE PRN IV 02/14/18 09:15 02/14/18 10:05 (NS Flush) 2 ml BID IV FLUSH 02/14/18 21:00 02/14/18 21:44 (Narcan Inj) 0.4 mg UNSCH PRN IV PUSH 02/14/18 10:30 (Armida-Colace) 1 tab BID PO 02/14/18 21:00 (Milk Of Magnesia Liq) 30 ml Q12H PRN PO 02/14/18 10:30 (Senokot) 17.2 mg Q12H PRN PO 02/14/18 10:30 (Dulcolax Supp) 10 mg DAILY PRN RECTAL 02/14/18 10:30 (Lactulose Liq) 30 ml DAILY PRN PO 02/14/18 10:30 (Coreg) 25 mg BID PO 02/14/18 21:00 02/14/18 21:54 (Apresoline) 25 mg BID PO 02/14/18 21:00 02/14/18 21:52 (Fosrenol Chew) 1,000 mg TIDPC CHEW 02/14/18 13:30 02/14/18 18:35 (Sensipar) 60 mg DAILY PO 02/15/18 09:00 (NS Flush) 2 ml UNSCH PRN IV FLUSH 02/14/18 13:15 (NS Flush) 2 ml BID IV FLUSH 02/14/18 21:00 (Aspirin Chew) 162 mg DAILY PO 02/15/18 09:00 (Plavix) 75 mg DAILY PO 02/15/18 09:00 Nitroglycerin/ Dextrose 250 ml @ 1.5 mls/hr TITRATE PRN IV 02/14/18 13:15 (Lipitor) 40 mg HS PO 02/15/18 21:00 Family History Father was on dialysis. His sister is on dialysis. Mother had ovarian cancer. Social History Smoked for 2 years. No ETOH. Lives alone. Recently moved from [place]. Physical Exam Vital Signs Vital Signs Date Time Temp Pulse Resp B/P (MAP) Pulse Ox O2 Delivery O2 Flow Rate FiO2 02/15/18 06:00 72 02/15/18 05:00 74 02/15/18 04:00 74 02/15/18 03:42 74 16 143/81 (101) 98 02/15/18 03:00 74 02/15/18 02:00 76 02/15/18 01:00 74 02/15/18 00:00 76 02/14/18 23:00 79 16 135/70 (91) 98 02/14/18 23:00 78 02/14/18 22:00 80 02/14/18 21:30 98.4 82 16 126/67 (86) 96 02/14/18 21:00 80 02/14/18 20:07 21 02/14/18 20:00 80 02/14/18 19:00 74 02/14/18 18:00 70 02/14/18 17:00 64 02/14/18 16:05 98.0 72 16 138/72 (94) 96 02/14/18 16:00 68 02/14/18 15:00 81 02/14/18 14:00 86 02/14/18 13:45 77 02/14/18 13:08 21 02/14/18 13:00 77 184/102 02/14/18 12:02 02/14/18 11:07 70 18 118/55 (76) 98 Room Air 02/14/18 09:07 68 18 130/57 (81) 100 Physical Exam GENERAL: Patient is awake, alert. SKIN: Warm and dry. HEAD: Normocephalic. EYES: No scleral icterus. No injection or drainage. NECK: Supple, trachea midline. No JVD or lymphadenopathy. CARDIOVASCULAR: Regular rate and rhythm without murmurs, gallops, or rubs. RESPIRATORY: Breath sounds equal bilaterally. No accessory muscle use. GASTROINTESTINAL: Abdomen soft, non-tender, nondistended. MUSCULOSKELETAL: No cyanosis, or edema. BACK: Nontender without obvious deformity. No CVA tenderness. Laboratory Laboratory Tests Test 02/14/18 11:08 02/14/18 16:20 02/15/18 05:40 Troponin I 0.27 0.28 Activated Partial Thromboplast Time 40.4 White Blood Count 9.3 Red Blood Count 3.58 Hemoglobin 11.1 Hematocrit 34.1 Mean Corpuscular Volume 95.3 Mean Corpuscular Hemoglobin 31.1 Mean Corpuscular Hemoglobin Concent 32.7 Red Cell Distribution Width 19.0 Platelet Count 250 Mean Platelet Volume 8.6 Neutrophils (%) (Auto) 66.0 Lymphocytes (%) (Auto) 11.0 Monocytes (%) (Auto) 11.0 Eosinophils (%) (Auto) 11.3 Basophils (%) (Auto) 0.7 Neutrophils # (Auto) 6.2 Lymphocytes # (Auto) 1.0 Monocytes # (Auto) 1.0 Eosinophils # (Auto) 1.1 Basophils # (Auto) 0.1 CBC Comment DIFF FINAL Differential Comment Blood Urea Nitrogen 53 Creatinine 9.74 Random Glucose 85 Total Protein 7.9 Albumin 3.1 Calcium Level 10.2 Alkaline Phosphatase 88 Aspartate Amino Transf (AST/SGOT) 8 Alanine Aminotransferase (ALT/SGPT) 12 Total Bilirubin 0.4 Direct Bilirubin 0.1 Sodium Level 138 Potassium Level 4.2 Chloride Level 95 Carbon Dioxide Level 29.6 Anion Gap 13 Estimat Glomerular Filtration Rate 7 Indirect Bilirubin 0.3 Total Creatine Kinase 42 Triglycerides Level 76 Cholesterol Level 146 LDL Cholesterol 91 HDL Cholesterol 40.2 Cholesterol/HDL Ratio 3.63 Result Diagram: 02/15/1853902/15/18539 Assessment and Plan Problem List: (1) ESRD (end stage renal disease) ICD Codes: N18.6 - End stage renal disease Plan: Dialysis will be continued Tuesdays, , Saturdays. Continue to monitor fluid and electrolytes. Avoid Gadolinium. (2) Hypertension ICD Codes: I10 - Essential (primary) hypertension Plan: BP is under control. On Carvedilol. (3) NSTEMI (non-ST elevated myocardial infarction) ICD Codes: I21.4 - Non-ST elevation (NSTEMI) myocardial infarction Status: Acute Plan: s/p cath and stent. Continue risk factor modifications. (4) Anemia of renal disease ICD Codes: D63.1 - Anemia in chronic kidney disease Plan: Epogen with dialysis. Hemoglobin is acceptable. Assessment and Plan Thanks for the consult. Josse Caicedo MD Feb 15, 2018 08:46
[2018-02-15] MEDS ORDERED: CLOPIDOGREL 75 MG TAB PO SCH (09:00)
[2018-02-15] MEDS ORDERED: NON-FORMULARY DRUG (Cinacalcet (Sensipar) 60 MG) PO SCH (09:00)
[2018-02-15] MEDS ORDERED: ASPIRIN 81 MG CHEW TAB PO SCH (09:00)
[2018-02-15] MEDS ORDERED: CINACALCET HYDROCHLORIDE 30 MG TAB PO SCH (09:00)
[2018-02-15] MEDS: SODIUM CHLORIDE 0.9% FLUSH 10 ML FLUSH IV FLUSH SCH ×2 (09:00→09:39)
--- NOTE | 2018-02-15 09:30 | EKG ---
Date Performed: 02/15/2018 Time Performed: 04:30:32 PTAGE: 67 years EKG: Sinus rhythm with aberrantly conducted supraventricular complexes Left ventricular hypertrophy by voltage only Ab normal ECG PREVIOUS TRACING : 02/14/2018 11.20 Since the previous tracing, no significant change noted DOCTOR: Kt Tellez Interpretating Date/Time 02/15/2018 09:28:41
[2018-02-15] MEDS: CARVEDILOL 12.5 MG TAB PO SCH (09:37)
[2018-02-15] MEDS: DOCUSATE SODIUM 50 MG/SENNA 8.6 MG TAB PO SCH (09:37)
[2018-02-15] MEDS: LANTHANUM CARBONATE 500 MG CHEWABLE TABLET CHEW SCH ×2 (09:37→13:07)
[2018-02-15] MEDS: hydrALAZINE HCL 25 MG TAB PO SCH (09:38)
[2018-02-15] MEDS ORDERED: traMADol HCL 50 MG TAB PO PRN (10:00)
--- NOTE | 2018-02-15 14:42 | PD.CARD.PN ---
Subjective Subjective Remarks assymptomatic Objective Medications Current Medications Medications (Trade) Dose Ordered Sig/Lawrence Route Start Time Stop Time Status Last Admin (NS Flush) 2 ml UNSCH PRN IVF 02/14/18 07:45 02/14/18 07:57 (Heparin Inj) 5,000 units UNSCH PRN IV PUSH 02/14/18 15:15 (Heparin Inj) 2,500 units UNSCH PRN IV PUSH 02/14/18 15:15 Heparin Sodium/ Dextrose 250 ml @ 10 mls/hr TITRATE PRN IV 02/14/18 09:15 02/14/18 10:05 (NS Flush) 2 ml BID IV FLUSH 02/14/18 21:00 02/15/18 09:39 (Narcan Inj) 0.4 mg UNSCH PRN IV PUSH 02/14/18 10:30 (Armida-Colace) 1 tab BID PO 02/14/18 21:00 02/15/18 09:37 (Milk Of Magnesia Liq) 30 ml Q12H PRN PO 02/14/18 10:30 (Senokot) 17.2 mg Q12H PRN PO 02/14/18 10:30 (Dulcolax Supp) 10 mg DAILY PRN RECTAL 02/14/18 10:30 (Lactulose Liq) 30 ml DAILY PRN PO 02/14/18 10:30 (Coreg) 25 mg BID PO 02/14/18 21:00 02/15/18 09:37 (Apresoline) 25 mg BID PO 02/14/18 21:00 02/15/18 09:38 (Fosrenol Chew) 1,000 mg TIDPC CHEW 02/14/18 13:30 02/15/18 13:07 (Sensipar) 60 mg DAILY PO 02/15/18 09:00 02/15/18 09:37 (NS Flush) 2 ml UNSCH PRN IV FLUSH 02/14/18 13:15 (NS Flush) 2 ml BID IV FLUSH 02/14/18 21:00 (Aspirin Chew) 162 mg DAILY PO 02/15/18 09:00 02/15/18 09:38 (Plavix) 75 mg DAILY PO 02/15/18 09:00 02/15/18 09:38 Nitroglycerin/ Dextrose 250 ml @ 1.5 mls/hr TITRATE PRN IV 02/14/18 13:15 (Lipitor) 40 mg HS PO 02/15/18 21:00 (Ultram) 50 mg Q8H PRN PO 02/15/18 10:00 02/15/18 11:44 Vital Signs / I&O Vital Signs Date Time Temp Pulse Resp B/P (MAP) Pulse Ox O2 Delivery O2 Flow Rate FiO2 02/15/18 14:09 60 02/15/18 13:04 66 02/15/18 12:51 18 02/15/18 12:50 67 02/15/18 11:39 71 02/15/18 11:39 98.0 68 18 135/69 (91) 99 02/15/18 10:08 73 02/15/18 09:56 68 02/15/18 08:43 70 02/15/18 08:37 98.1 70 18 142/64 (90) 96 02/15/18 06:00 72 02/15/18 05:00 74 02/15/18 04:00 74 02/15/18 03:42 74 16 143/81 (101) 98 02/15/18 03:00 74 02/15/18 02:00 76 02/15/18 01:00 74 02/15/18 00:00 76 02/14/18 23:00 79 16 135/70 (91) 98 02/14/18 23:00 78 02/14/18 22:00 80 02/14/18 21:30 98.4 82 16 126/67 (86) 96 02/14/18 21:00 80 02/14/18 20:07 21 02/14/18 20:00 80 02/14/18 19:00 74 02/14/18 18:00 70 02/14/18 17:00 64 02/14/18 16:05 98.0 72 16 138/72 (94) 96 02/14/18 16:00 68 02/14/18 15:00 81 I/O 02/14/18 02/14/18 02/14/18 02/15/18 02/15/18 02/15/18 07:00 15:00 23:00 07:00 15:00 23:00 Intake Total 240 ml 240 ml Output Total 2000 ml 0 ml Balance -1760 ml 240 ml Intake Oral 240 ml 240 ml Output Urine Total 0 ml 0 ml Hemodialysis 2000 ml # Bowel Movements 1 Physical Exam GENERAL: SKIN: Warm and dry. HEAD: Normocephalic. EYES: No scleral icterus. No injection or drainage. NECK: Supple, trachea midline. No JVD or lymphadenopathy. CARDIOVASCULAR: Regular rate and rhythm without murmurs, gallops, or rubs. RESPIRATORY: Breath sounds equal bilaterally. No accessory muscle use. GASTROINTESTINAL: Abdomen soft, non-tender, nondistended. MUSCULOSKELETAL: No cyanosis, or edema. BACK: Nontender without obvious deformity. No CVA tenderness. Laboratory Laboratory Tests Test 02/14/18 16:20 02/15/18 05:40 Activated Partial Thromboplast Time 40.4 SEC Troponin I 0.28 NG/ML White Blood Count 9.3 TH/MM3 Red Blood Count 3.58 MIL/MM3 Hemoglobin 11.1 GM/DL Hematocrit 34.1 % Mean Corpuscular Volume 95.3 FL Mean Corpuscular Hemoglobin 31.1 PG Mean Corpuscular Hemoglobin Concent 32.7 % Red Cell Distribution Width 19.0 % Platelet Count 250 TH/MM3 Mean Platelet Volume 8.6 FL Neutrophils (%) (Auto) 66.0 % Lymphocytes (%) (Auto) 11.0 % Monocytes (%) (Auto) 11.0 % Eosinophils (%) (Auto) 11.3 % Basophils (%) (Auto) 0.7 % Neutrophils # (Auto) 6.2 TH/MM3 Lymphocytes # (Auto) 1.0 TH/MM3 Monocytes # (Auto) 1.0 TH/MM3 Eosinophils # (Auto) 1.1 TH/MM3 Basophils # (Auto) 0.1 TH/MM3 CBC Comment DIFF FINAL Differential Comment Blood Urea Nitrogen 53 MG/DL Creatinine 9.74 MG/DL Random Glucose 85 MG/DL Total Protein 7.9 GM/DL Albumin 3.1 GM/DL Calcium Level 10.2 MG/DL Alkaline Phosphatase 88 U/L Aspartate Amino Transf (AST/SGOT) 8 U/L Alanine Aminotransferase (ALT/SGPT) 12 U/L Total Bilirubin 0.4 MG/DL Direct Bilirubin 0.1 MG/DL Sodium Level 138 MEQ/L Potassium Level 4.2 MEQ/L Chloride Level 95 MEQ/L Carbon Dioxide Level 29.6 MEQ/L Anion Gap 13 MEQ/L Estimat Glomerular Filtration Rate 7 ML/MIN Indirect Bilirubin 0.3 MG/DL Total Creatine Kinase 42 U/L Triglycerides Level 76 MG/DL Cholesterol Level 146 MG/DL LDL Cholesterol 91 MG/DL HDL Cholesterol 40.2 MG/DL Cholesterol/HDL Ratio 3.63 RATIO Assessment and Plan Problem List: (1) NSTEMI (non-ST elevated myocardial infarction) ICD Codes: I21.4 - Non-ST elevation (NSTEMI) myocardial infarction Status: Acute (2) Anemia of renal disease ICD Codes: D63.1 - Anemia in chronic kidney disease (3) ESRD (end stage renal disease) ICD Codes: N18.6 - End stage renal disease (4) Hypertension ICD Codes: I10 - Essential (primary) hypertension Assessment and Plan 1.) NSTEMI - assymptomatic, pod # 1 bms ostial diagonal, ok to dc from cv standpoint on aspirin, plavix, lipitor and coreg; patient advised to f/u with me 02/16/18 in my office and that noncompliance with aspirin and plavix could result in a life threatening stent thrombosis Kj Chavira MD Feb 15, 2018 14:42
[2018-02-15] MEDS ORDERED: ATOR40TA16 PO (15:36)
[2018-02-15] MEDS ORDERED: CARV25TA PO (15:36)
[2018-02-15] MEDS ORDERED: PLAV75TA29 PO (15:36)
[2018-02-15] MEDS ORDERED: ASPI81 PO (15:36)
--- NOTE | 2018-02-15 17:23 | HHI.DS ---
Discharge Summary Admission Date Feb 14, 2018 at 10:20 am Discharge Date: Feb 15, 2018 Admitting Diagnosis NSTEMI, ESRD (1) NSTEMI (non-ST elevated myocardial infarction) ICD Code: I21.4 - Non-ST elevation (NSTEMI) myocardial infarction Status: Acute (2) ESRD (end stage renal disease) ICD Code: N18.6 - End stage renal disease (3) Hypertension ICD Code: I10 - Essential (primary) hypertension Procedures Cardiac cath 02/14/2018 1. [id number]-wddnuimtd myocardial infarction, culprit 95% stenosis in the ostial first diagonal artery as detailed above. 2. Otherwise, mild 3-vessel coronary artery disease in a right dominant system, as detailed above. 3. Moderate to severe fibrocalcification in the left main and proximal mid LAD, as detailed above. 4. Mild left ventricular systolic dysfunction, EF of 45% with at least mild hypokinesis of the anterolateral wall. 5. Successful PCI bare metal stent of the ostial diagonal artery from 95% to 0 percent with SALAZAR 3 flow. Brief History - From Admission Patient is a 67-year-old male with history of end-stage renal disease, dialyzed Thursday, , and Thursday, last dialyzed yesterday, HTN, who comes in complaining of chest pain radiating down to his left arm. He says this is been going on for 2 days, coming and going. He says that he was walking today and that is when the pain came on. He denies any shortness of breath, palpitations , diaphoresis or nausea associated. He says this is happened before when he had too much fluid on his lungs. He denies any nausea or vomiting. He denies fever chills. Severity is mild to moderate. Patient is noted with elevated trop. 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 CBC/BMP: 02/15/18 0540 02/15/18 0540 Significant Findings Laboratory Tests Test 02/14/18 07:40 02/14/18 11:08 02/14/18 16:20 02/15/18 05:40 Red Blood Count 3.75 MIL/MM3 (4.50-5.90) 3.58 MIL/MM3 (4.50-5.90) Hemoglobin 11.8 GM/DL (13.0-17.0) 11.1 GM/DL (13.0-17.0) Hematocrit 35.6 % (39.0-51.0) 34.1 % (39.0-51.0) Red Cell Distribution Width 19.4 % (11.6-17.2) 19.0 % (11.6-17.2) Monocytes (%) (Auto) 9.2 % (0.0-8.0) 11.0 % (0.0-8.0) Eosinophils (%) (Auto) 8.1 % (0.0-4.0) 11.3 % (0.0-4.0) Eosinophils # (Auto) 0.8 TH/MM3 (0-0.4) 1.1 TH/MM3 (0-0.4) Blood Urea Nitrogen 61 MG/DL (7-18) 53 MG/DL (7-18) Creatinine 10.85 MG/DL (0.60-1.30) 9.74 MG/DL (0.60-1.30) Total Protein 8.5 GM/DL (6.4-8.2) Albumin 3.1 GM/DL (3.4-5.0) 3.1 GM/DL (3.4-5.0) Aspartate Amino Transf (AST/SGOT) 38 U/L (15-37) 8 U/L (15-37) Potassium Level 5.5 MEQ/L (3.5-5.1) Chloride Level 96 MEQ/L (98-107) 95 MEQ/L (98-107) Estimat Glomerular Filtration Rate 6 ML/MIN (>89) 7 ML/MIN (>89) Troponin I 0.31 NG/ML (0.02-0.05) 0.27 NG/ML (0.02-0.05) 0.28 NG/ML (0.02-0.05) Activated Partial Thromboplast Time 40.4 SEC (24.3-30.1) Monocytes # (Auto) 1.0 TH/MM3 (0-0.9) Calcium Level 10.2 MG/DL (8.5-10.1) Imaging Last Impressions Chest X-Ray 02/14/18 4833 Signed Impressions: CONCLUSION: Negative examination. PE at Discharge GENERAL: AOX3, NAD. SKIN: Warm and dry. HEAD: Normocephalic. EYES: No scleral icterus. No injection or drainage. NECK: Supple, trachea midline. No JVD or lymphadenopathy. CARDIOVASCULAR: Regular rate and rhythm without murmurs, gallops, or rubs. RESPIRATORY: Breath sounds equal bilaterally. No accessory muscle use. GASTROINTESTINAL: Abdomen soft, non-tender, nondistended. MUSCULOSKELETAL: No cyanosis, or edema. BACK: Nontender without obvious deformity. No CVA tenderness. Pt update on day of discharge Pt is doing well. No CP, SOB, fever, chills. Hospital Course Patient is a 67-year-old male with history of end-stage renal disease, dialyzed Thursday, , and Thursday who presented to the ED on 02/14/2018 due to chest pain radiating to his left arm. Troponins were elevated to 0.31, 0.27, 0.28. Cardiology was consulted and patient underwent Cardiac cath on 02/14/2018, patient received a BMS. Cardiology recommended patient to continue Aspirin, Plavix, Lipitor, Coreg and outpatient follow up on 02/16/2018. Patient was subsequently discharged home. Nephrology was consulted. However, patient's regular dialysis is on Thu and he will continue outpatient dialysis. Pt Condition on Discharge: Good Discharge Disposition: Discharge Home Discharge Time: <= 30 minutes Discharge Instructions DIET: Follow Instructions for: Heart Healthy Diet Activities you can perform: Regular-No Restrictions Follow up Referrals: Cardiology - 02/16/18 with Kj Chavira MD New Medications: Aspirin (Tgt Aspirin) 81 Mg Chw 162 MG PO DAILY for Blood Clot Prevention, #90 EA 3 Refills Atorvastatin (Atorvastatin) 40 Mg Tab 40 MG PO HS for Cholesterol Management, #90 TAB 3 Refills Clopidogrel (Plavix) 75 Mg Tab 75 MG PO DAILY for Blood Clot Prevention, #90 TAB 3 Refills Changed Medications: Carvedilol (Carvedilol) 25 Mg Tab 25 MG PO BID for Heart, #60 TAB 11 Refills (Changed from: Refills: 0) Continued Medications: Cinacalcet (Sensipar) 60 Mg Tab 60 MG PO DAILY, #30 TAB 0 Refills Hydralazine HCl (Hydralazine HCl) 25 Mg Tablet 25 MG PO BID for Blood Pressure Management, #60 TAB 0 Refills Lanthanum (Fosrenol) 1,000 Mg Tab 1000 MG CHEW TIDPC for Reduce Phosphorous, #90 TAB 0 Refills Karl Augustin DO Feb 15, 2018 5:23 pm
[2018-02-15] MEDS ORDERED: ATORVASTATIN 40 MG TAB PO SCH (21:00)
== END 2018-02-15 18:09 | disposition home or self-care (01) | DRG 248 ==
LOC: NEPE 07:06 → NEDA 10:20 → HCIS 13:29
PROVIDERS: ADMIT Hospitalist; ATTEND Hospitalist
PROC: 02703DZ Dilation of Coronary Artery, One Artery with Intraluminal Device, Percutaneous Approach (ICD-10-PCS; principal; 2018-02-14)
PROC: 4A023N7 Measurement of Cardiac Sampling and Pressure, Left Heart, Percutaneous Approach (ICD-10-PCS; 2018-02-14)
PROC: B2111ZZ Fluoroscopy of Multiple Coronary Arteries using Low Osmolar Contrast (ICD-10-PCS; 2018-02-14)
PROC: B2151ZZ Fluoroscopy of Left Heart using Low Osmolar Contrast (ICD-10-PCS; 2018-02-14)
DX: I21.4 Non-ST elevation (NSTEMI) myocardial infarction (principal); N18.6 End stage renal disease; I12.0 Hypertensive chronic kidney disease with stage 5 chronic kidney disease or end stage renal disease; I25.118 Atherosclerotic heart disease of native coronary artery with other forms of angina pectoris; D63.1 Anemia in chronic kidney disease; Z99.2 Dependence on renal dialysis; Z90.01 Acquired absence of eye; Z87.891 Personal history of nicotine dependence
CPT/HCPCS: 71045; 80048; 80053; 80061; 80076; 82550; 82552; 84484; 85002; 85025; 85610; 85730; 92928; 93005; 93458; C1725; C1769; C1876; C1887; J1644; J3010; Q9967

== ENCOUNTER 2018-03-22 12:23 | Inpatient (IN) ==
[2018-03-22] MEDS ORDERED: Sodium Chlor 0.9% Inj 500 ML IV.SIG ONE (15:55)
--- NOTE | 2018-03-22 16:01 | ED ---
HPI General Chief Complaint: Dizziness Stated Complaint: Faintness/tingling in fingers Time Seen by Provider: 03/22/18 15:39 Source: patient Mode of arrival: ambulatory Limitations: no limitations History of Present Illness HPI Narrative: 68-year-old male with end-stage renal disease on hemodialysis, history of cardiac stents presents emergency department evaluation of extremity numbness and tingling, dizziness bloated abdomen, and blurred vision started 1130 this morning. Says that he has had nonbloody vomiting and diarrhea that started Thursday. Says he has black stools secondary to his medication, the fluoroscopy which he started approximately 1 week ago. He denies bright red bleeding per rectum or hematemesis. He does not remember his hand mica plate layer name. He follows Dr. Chavira, cardiology for history of cardiac stents. His primary care physician is Dr. Haddad. He has a history of a colostomy secondary to "ruptured intestines". This has since been reversed and patient no longer has a colostomy. Patient has dialysis Thursday, , and Thursday. He did have dialysis Thursday. He denies fever, chills, chest pain, abdominal pain, leg pain. MD complaint: dizziness Related Data Home Medications Medication Instructions Recorded Confirmed B complex-vitamin C-folic acid 1 tab PO DAILY 03/22/18 03/22/18 [Nephro-Diana] aspirin [Aspir-81] 162 mg PO DAILY 03/22/18 03/22/18 atorvastatin 40 mg PO DAILY 03/22/18 03/22/18 carvedilol 25 mg PO BID 03/22/18 03/22/18 cinacalcet [Sensipar] 60 mg PO DAILY 03/22/18 03/22/18 clopidogrel 75 mg PO DAILY 03/22/18 03/22/18 sucroferric oxyhydroxide [Velphoro] 1,000 mg PO TID 03/22/18 03/22/18 Allergies Allergy/AdvReac Type Severity Reaction Status Date / Time No Known Allergies Allergy Unverified 02/14/18 07:25 Review of Systems Except as stated in HPI: all other systems reviewed are negative [facility] Medical History Medical History AV fistula (Acute) Dialysis patient (Acute) High cholesterol (Acute) Hypertension (Acute) Renal failure (Acute) Surgical History Surgical History History of colon resection (Acute) Stented coronary artery (Acute) Social History Social History Substance History: Past History Smoking Status: Former smoker How Often Do You Have a Drink Containing Alcohol: Never Recent Travel in [place] within the Last 8 Weeks: No Recent Out of Country Travel within the Last 8 Weeks: No Immunization History Tetanus Immunization: <5 Years Hx Influenza Vaccine This Season: Yes Exam Narrative Exam Narrative: GENERAL: Well-developed well-nourished in no apparent distress resting comfortably in bed SKIN: Focused skin assessment warm/dry. HEAD: Atraumatic. Normocephalic. EYES: Pupil equal and round. No scleral icterus. No injection or drainage. Patient does not have a left eye ENT: No nasal bleeding or discharge. Mucous membranes pink and moist. NECK: Trachea midline. No JVD. No lymphadenopathy. No meningismus. No midline tenderness CARDIOVASCULAR: Regular rate and rhythm. No murmur appreciated. RESPIRATORY: No accessory muscle use. Clear to auscultation. Breath sounds equal bilaterally. GASTROINTESTINAL: Abdomen soft, non-tender, somewhat distended without rebound tenderness. Hepatic and splenic margins not palpable. MUSCULOSKELETAL: No obvious deformities. No clubbing. No cyanosis. No edema. NEUROLOGICAL: Awake and alert. Cranial nerves II through XII intact. Motor and sensory grossly within normal limits. Five out of 5 muscle strength in all muscle groups. Normal speech. PSYCHIATRIC: Appropriate mood and affect; insight and judgment normal. Course Consultations Consultation #1: dr ramirez requests to call his hand mica plate layer Consultation #2: dr caicedo agrees to help arrange stat dialysis Consultation #3: dr dill agrees to admit Initial Documented Vital Signs Temperature 97.5 F L 03/22/18 12:50 Pulse Rate 43 L 03/22/18 12:50 Respiratory Rate 16 03/22/18 12:50 Blood Pressure 143/67 H 03/22/18 12:50 Pulse Oximetry 97 03/22/18 12:50 Last Documented Vital Signs Temperature 97.5 F L 03/22/18 12:50 Pulse Rate 55 L 03/22/18 17:36 Respiratory Rate 19 03/22/18 17:36 Blood Pressure 185/79 H 03/22/18 15:53 Pulse Oximetry 96 03/22/18 15:53 Critical Care Time Critical Care Time: Yes Total Critical Care Time: 55 Attestation: Aggregate critical care time was 55 minutes. Time to perform other separately billable procedures was not included in the critical care time. My time did not include minutes spent treating any other patients simultaneously or on activities that did not directly contribute to the patient's treatment. The services I provided to this patient were to treat and/or prevent clinically significant deterioration that could result in: 68-year-old male who presents with dizzy and ill feeling. While patient was here he had a episode of bradycardia with what appeared to be AV block on the monitor. EKG was performed that showed peaked T's. He was given calcium and bicarbonate in the lab called with a critical potassium of 9.1. On-call nephrology was called who states they do not follow this patient so reviewed notes as patient could not recall his hand mica plate layer and Dr. Caicedo was called who graciously arranged at bedside dialysis while I gave additional bicarb, albuterol, dextrose, insulin, Kayexalate. Patient was updated and he will be admitted to the ICU for close monitoring I provided critical care services requiring my management, as noted below: Chart data review, documentation time, medication orders and management, vital sign assessments/reviewing monitor data, ordering and reviewing lab tests, ordering and interpreting/reviewing x-rays and diagnostic studies, care of the patient and discussion of the patient with the admitting physicians. Medical Decision Making MDM Narrative Medical decision making narrative: 68-year-old male with history of end-stage renal disease on evaluation of dizziness, abdominal bloating, blurred vision, diarrhea, vomiting. His exam findings essentially unremarkable except for a left eye removal. His vital signs are stable. During the course of his stay, A. Bradycardia was noted. Cardiac enzymes and EKG performed. EKG demonstrates a heart block with peaked T waves. Potassium lowering therapy initiated. A call was placed to professional advisor hand mica plate layer for consult. Emergent dialysis ordered. Please see my attending's note as well regarding this patient. Differential Diagnosis Differential Diagnosis: Dehydration, gastroenteritis, adverse medication reaction, metabolic disturbance Lab Data Lab results reviewed: Yes I reviewed the patient's lab results. Result diagrams: 03/22/18 16:28 03/22/18 16: Lab Results 03/22/18 03/22/18 03/22/18 Range/Units 16:28 16:28 16:28 WBC 8.4 (4.0-11.0) th/mm3 RBC 3.99 L (4.50-5.90) mil/mm3 Hgb 13.1 (13.0-17.0) gm/dL Hct 38.9 L (39.0-51.0) % MCV 97.5 (80.0-100.0) fL MCH 32.8 (27.0-34.0) pg MCHC 33.6 (32.0-36.0) % RDW 19.2 H (11.6-17.2) % Plt Count 209 (150-450) th/mm3 MPV 8.7 (7.0-11.0) fL Neut % (Auto) 68.7 (16.0-70.0) % Lymph % (Auto) 17.7 (9.0-44.0) % [place] % (Auto) 10.0 H (0.0-8.0) % Eos % (Auto) 2.9 (0.0-4.0) % Baso % (Auto) 0.7 (0.0-2.0) % Neut # (Auto) 5.8 (1.8-7.7) th/mm3 Lymph # (Auto) 1.5 (1.0-4.8) th/mm3 [place] # (Auto) 0.8 (0.0-0.9) th/mm3 Eos # (Auto) 0.2 (0.0-0.4) th/mm3 Baso # (Auto) 0.1 (0.0-0.2) th/mm3 WBC Differential . Differential Comment Auto diff final PT (9.8-11.6) sec INR Ratio Sodium 136 (136-145) meq/L Potassium 9.1 H* (3.5-5.1) meq/L Chloride 102 (98-107) meq/L Carbon Dioxide 22.5 (21.0-32.0) meq/L Anion Gap 12 (5-15) meq/L BUN 87 H (7-18) mg/dL Creatinine 12.54 H* (0.60-1.30) mg/dL Estimated GFR 5 L (>89) mL/min Random Glucose 99 (74-106) mg/dL Calcium 9.5 (8.5-10.1) mg/dL Phosphorus 6.4 H (2.5-4.9) mg/dL Total Bilirubin 0.4 (0.2-1.0) mg/dL AST 29 (15-37) U/L ALT 25 (12-78) U/L Alkaline Phosphatase 116 (45-117) U/L Ammonia 35 H (11-32) mcmol/L Total Creatine Kinase (39-308) U/L CK-MB (CK-2) (0.5-3.6) ng/mL Troponin I (0.02-0.05) ng/mL Total Protein 8.5 H (6.4-8.2) g/dL Albumin 3.9 (3.4-5.0) g/dL 03/22/18 03/22/18 Range/Units 16:28 16:59 WBC (4.0-11.0) th/mm3 RBC (4.50-5.90) mil/mm3 Hgb (13.0-17.0) gm/dL Hct (39.0-51.0) % MCV (80.0-100.0) fL MCH (27.0-34.0) pg MCHC (32.0-36.0) % RDW (11.6-17.2) % Plt Count (150-450) th/mm3 MPV (7.0-11.0) fL Neut % (Auto) (16.0-70.0) % Lymph % (Auto) (9.0-44.0) % [place] % (Auto) (0.0-8.0) % Eos % (Auto) (0.0-4.0) % Baso % (Auto) (0.0-2.0) % Neut # (Auto) (1.8-7.7) th/mm3 Lymph # (Auto) (1.0-4.8) th/mm3 [place] # (Auto) (0.0-0.9) th/mm3 Eos # (Auto) (0.0-0.4) th/mm3 Baso # (Auto) (0.0-0.2) th/mm3 WBC Differential Differential Comment PT 10.7 (9.8-11.6) sec INR 1.1 Ratio Sodium (136-145) meq/L Potassium (3.5-5.1) meq/L Chloride (98-107) meq/L Carbon Dioxide (21.0-32.0) meq/L Anion Gap (5-15) meq/L BUN (7-18) mg/dL Creatinine (0.60-1.30) mg/dL Estimated GFR (>89) mL/min Random Glucose (74-106) mg/dL Calcium (8.5-10.1) mg/dL Phosphorus (2.5-4.9) mg/dL Total Bilirubin (0.2-1.0) mg/dL AST (15-37) U/L ALT (12-78) U/L Alkaline Phosphatase (45-117) U/L Ammonia (11-32) mcmol/L Total Creatine Kinase 112 (39-308) U/L CK-MB (CK-2) 2.5 (0.5-3.6) ng/mL Troponin I 0.03 (0.02-0.05) ng/mL Total Protein (6.4-8.2) g/dL Albumin (3.4-5.0) g/dL Imaging Data Attestation: I personally reviewed and interpreted this imaging study as follows : Radiologist's impression: ITS Impressions Chest X-Ray 03/22/18 15:55 CONCLUSION: Cardiomegaly. No acute pulmonary disease. Discharge Plan Discharge Disposition Patient Disposition: 30 Still Patient Discharge Condition Condition: Critical Discharge Details Discharge Problem: Acute hyperkalemia, Dialysis patient Physicians Team ED Provider: Rose Caal ED Midlevel Provider: Hilary Rocha Primary Care Provider: POONAM, Other Providers: Jessie Ramirez Rxs /Orders / Referrals /Forms Prescriptions: No Action atorvastatin 40 mg Tablet 40 mg PO DAILY RF: 0 carvedilol 25 mg Tablet 25 mg PO BID RF: 0 clopidogrel 75 mg Tablet 75 mg PO DAILY RF: 0 aspirin [Aspir-81] 81 mg Tablet,Delayed Release (Dr/Ec) 162 mg PO DAILY RF: 0 B complex-vitamin C-folic acid [Nephro-Diana] 0.8 mg Tablet 1 tab PO DAILY RF: 0 cinacalcet [Sensipar] 60 mg Tablet 60 mg PO DAILY RF: 0 sucroferric oxyhydroxide [Velphoro] 500 mg Tablet,Chewable 1,000 mg PO TID RF: 0 Discharge Interventions Interventions: Vital Signs Last Done: 03/22/18 15:53 Status ED Status: Admitted Patient
[2018-03-22] MEDS ORDERED: Sodium Bicarbonate 8.4% Inj 50 MEQ/50 ML Syringe IV.CONT ONE (16:24)
[2018-03-22] MEDS ORDERED: Calcium Chloride Inj 1 GM/10 ML Syringe IV.CONT ONE (16:24)
[2018-03-22 16:54] LABS: Baso # (Auto) 0.1 th/mm3 (0.0-0.2); Baso % (Auto) 0.7 % (0.0-2.0); Eos # (Auto) 0.2 th/mm3 (0.0-0.4); Eos % (Auto) 2.9 % (0.0-4.0); Hematocrit 38.9 % (39.0-51.0); Hemoglobin 13.1 gm/dL (13.0-17.0); Lymph # (Auto) 1.5 th/mm3 (1.0-4.8); Lymph % (Auto) 17.7 % (9.0-44.0); Mean Corpuscular HGB Conc 33.6 % (32.0-36.0); Mean Corpuscular Hemoglobin 32.8 pg (27.0-34.0); Mean Corpuscular Volume 97.5 fL (80.0-100.0); Mean Platelet Volume 8.7 fL (7.0-11.0); Mono # (Auto) 0.8 th/mm3 (0.0-0.9); Neut # (Auto) 5.8 th/mm3 (1.8-7.7); Neut % (Auto) 68.7 % (16.0-70.0); Platelet Count 209 th/mm3 (150-450); Red Blood Count 3.99 mil/mm3 (4.50-5.90); Red Cell Distribution Width 19.2 % (11.6-17.2); White Blood Count 8.4 th/mm3 (4.0-11.0)
--- NOTE | 2018-03-22 17:03 | XR ---
EXAM DATE: 03/22/2018 4:52 PM EDT AGE/SEX: 68 years / Male INDICATIONS: Short of breath CLINICAL DATA: This is the patient's initial encounter. Patient reports that signs and symptoms have been present for 1 day and indicates a pain score of 0/10. MEDICAL/SURGICAL HISTORY: Cardiovascular disease. Carotid stent. COMPARISON: [facility] [place], 02/14/2018. . FINDINGS: The cardiac silhouette is enlarged in transverse diameter. The lungs are free of acute parenchymal op acity. No effusions are identified. There is prominence of the aortic knob is with calcification livia acteristic of atherosclerotic vascular disease. There is elevation of the right hemidiaphragm. CONCLUSION: Cardiomegaly. No acute pulmonary disease. Electronically signed by: Kt Contreras MD 03/22/2018 5:01 PM EDT
[2018-03-22 17:17] LABS: INR 1.1 Ratio; Prothrombin Time 10.7 sec (9.8-11.6)
[2018-03-22 17:19] LABS: Alanine Aminotransferase 25 U/L (12-78); Albumin 3.9 g/dL (3.4-5.0); Alkaline Phosphatase 116 U/L (45-117); Anion Gap 12 meq/L (5-15); Aspartate Aminotransferase 29 U/L (15-37); Blood Urea Nitrogen 87 mg/dL (7-18); Calcium 9.5 mg/dL (8.5-10.1); Carbon Dioxide 22.5 meq/L (21.0-32.0); Chloride 102 meq/L (98-107); Glomerular Filtration Rate 5 mL/min (>89); Glucose,Random 99 mg/dL (74-106); Phosphorus 6.4 mg/dL (2.5-4.9); Sodium 136 meq/L (136-145); Total Protein 8.5 g/dL (6.4-8.2)
[2018-03-22 17:20] LABS: Potassium 9.1 meq/L (3.5-5.1)
[2018-03-22] MEDS ORDERED: Sodium Bicarbonate 8.4% Inj 50 MEQ/50 ML Syringe IV.PUSH ONE (17:21)
[2018-03-22] MEDS ORDERED: Dextrose 50% in Water 50 ML Vial IV.PUSH ONE (17:21)
[2018-03-22] MEDS ORDERED: Calcium Gluconate Inj 1 GM in Sodium Chlor 0.9% Inj 90 ML IV.SIG ONE (17:21)
[2018-03-22] MEDS ORDERED: RESP: Albuterol Concentrated 2.5 MG/0.5 ML Neb NEB ONE (17:21)
[2018-03-22] MEDS ORDERED: Sodium Polystyrene Sulfonate/Sorbitol Liq 15 GM/60 ML UDC PO ONE (17:29)
[2018-03-22 17:31] LABS: Creatine Kinase 112 U/L (39-308); Troponin I 0.03 ng/mL (0.02-0.05)
[2018-03-22 17:49] LABS: Creatine Kinase MB 2.5 ng/mL (0.5-3.6)
[2018-03-22] MEDS ORDERED: Morphine Inj 4 MG/ML Vial IV.PUSH PRN (18:24)
[2018-03-22] MEDS ORDERED: Acetaminophen 325 MG Tablet PO PRN ×2 (18:24→19:50)
[2018-03-22] MEDS ORDERED: Bisacodyl 10 MG Supp RECTAL PRN (18:24)
--- NOTE | 2018-03-22 18:42 | P.HPCC ---
History of Present Illness Primary Care Physician: UNKNOWN Chief Complaint: Dizziness dizziness History of Present Illness: 68-year-old AA male. Date of admission 03/22/2018. Past medical history includes with end-stage renal disease secondary to hypertensive nephrosclerosis on hemodialysis Thursday//Thursday, history of cardiac stents last month to the first diagonal OM by Dr. Chavira, mild coronary disease who presents emergency department evaluation of acute onset of extremity numbness and tingling, dizziness bloated abdomen, and blurred vision started 1130 this morning. He states that he did have dialysis Thursday. He denies fever, chills , chest pain, abdominal pain, leg pain. Patient was placed on the monitor is noted to have a heart block with a junctional rhythm/bradycardia with peaked T waves. Potassium is 9.1. Patient did receive bicarbonate, glucose/D50 is been started on emergent hemodialysis through his left AV fistula. He is currently denying chest pain, shortness of breath is quite hypertensive in the room. He seemed medically stable. Inpatient Certification: I certify that the inpatient services were ordered in accordance with Medicare regulations governing the order. This includes certification that hospital inpatient services are reasonable and necessary and in the case of services not specified as inpatient-only under 42 CFR 419.22(n), that they are appropriately provided as inpatient services in accordance to with the 2-midnight benchmark under 43 CFR 412.3(e) Estimated Total Length of Stay (Days): 7 Plans for Post Hospital Care: Not yet determined Review of Systems Constitutional: Reports body ache(s), Reports weakness, Denies chills, Denies daytime sleepiness, Denies weight gain Eyes: Reports blurry vision, Denies blind spots, Denies sensitivity to light Ears, Nose, Mouth, and Throat: Denies bleeding gums, Denies dry mouth, Denies ear discharge Cardiovascular: Reports fainting, Denies chest pain, Denies fast heart rate Respiratory: Denies change in phlegm color, Denies chest congestion, Denies cough, Denies coughing up blood Gastrointestinal: Reports bloating, Reports change in stools, Denies abdominal pain, Denies constipation Genitourinary: Denies genital pain, Denies side pain Musculoskeletal: Reports body aches, Reports muscle weakness, Denies abnormal walking, Denies back pain, Denies neck pain Skin/Breast: Denies boil Neurologic: Reports numbness, Denies lack of coordination, Denies localized weakness Psychiatric: Reports anxiety, Denies behavioral changes Endocrine: Denies cold intolerance, Denies excessive sweating Hematologic/Lymphatic: Denies easy bleeding Allergic/Immunologic: Denies hives PMFSH - History History Provided By: Patient - Medical History Medical History: Medical History (Last Reviewed 03/22/18 @ 18:33 by Ariel Barnhart MD) AV fistula Dialysis patient High cholesterol Hypertension Renal failure - Surgical History Surgical History: Surgical History (Last Reviewed 03/22/18 @ 18:33 by Ariel Barhnart MD) History of colon resection Stented coronary artery - Family History Family History: Family History (Last Updated 03/22/18 @ 18:33 by Ariel Barnhart MD) Mother Family history of cancer - Tobacco History Second Hand Smoke Exposure: No Tobacco Use In Past 30 Days: No Smoking Status: Former smoker Tobacco Type: Cigars - Alcohol History How Often Do You Have a Drink Containing Alcohol: Never - Substance Use History Substance History: Past History - Travel History Recent Travel in the [place] Within the Last 8 Weeks: No Recent Travel Out of the Country Within the Last 8 Weeks: No - Immunization History Tetanus Immunization: <5 Years Hx Influenza Vaccine This Season: Yes Medications and Allergies Active Medications: Active Medications Acetaminophen (Tylenol) 650 mg PO Q6H PRN PRN Reason: FEVER Hydrocodone Bitart/Acetaminophen ([place] 5/325) 1 tab PO Q4H PRN PRN Reason: PAIN SCALE 1 TO 5 Al Hydroxide/Mg Hydroxide (Milk Of Magnesia Liq) 30 ml PO Q12H PRN PRN Reason: Mild Constipation Albuterol (Albuterol Neb ([place])) 2.5 mg NEB Q2HR NEB PRN PRN Reason: SHORTNESS OF BREATH/WHEEZING Bisacodyl (Dulcolax Supp) 10 mg RECTAL DAILY PRN PRN Reason: SEVERE CONSITIPATION Chlorhexidine Gluconate (Chlorhexidine 2% Cloth) 3 pack TOPICAL DAILY@0400 [place] Stop: 03/28/18 03:59 Chlorhexidine Gluconate (Chlorhexidine 2% Cloth) 3 pack TOPICAL DAILY@0400 PRN PRN Reason: Extra cloth needed Stop: 03/28/18 03:59 Heparin Sodium (Porcine) (Heparin Inj) 5,000 units SQ Q12H [place] Lactulose (Lactulose Liq) 30 ml PO DAILY PRN PRN Reason: SEVERE CONSITIPATION Morphine Sulfate (Morphine Inj) 2 mg IV.PUSH Q2H PRN PRN Reason: PAIN SCALE 6 TO 10 Ondansetron HCl (Zofran Inj) 4 mg IV.PUSH Q6H PRN PRN Reason: NAUSEA OR VOMITING Pantoprazole Sodium (Protonix) 40 mg PO DAILY [facility] Senna/Docusate Sodium (Armida-Colace) 1 tab PO BID [facility] Sennosides (Senokot) 17.2 mg PO Q12H PRN PRN Reason: Moderate Constipation Sodium Chloride (Ns Flush) 2 ml IV.FLUSH PRN PRN PRN Reason: FLUSH AFTER USING IV ACCESS Last Admin: 03/22/18 18:07 Dose: 2 ml Sodium Chloride (Ns Flush) 2 ml IV.FLUSH PRN PRN PRN Reason: FLUSH AFTER USING IV ACCESS Sodium Chloride (Ns Flush) 2 ml IV.FLUSH BID [facility] Allergies Allergy/AdvReac Type Severity Reaction Status Date / Time No Known Allergies Allergy Unverified 02/14/18 07:25 Home Medications Medication Instructions Recorded Confirmed Type B complex-vitamin C-folic acid 1 tab PO DAILY 03/22/18 03/22/18 History [Nephro-Diana] aspirin [Aspir-81] 162 mg PO DAILY 03/22/18 03/22/18 History atorvastatin 40 mg PO DAILY 03/22/18 03/22/18 History carvedilol 25 mg PO BID 03/22/18 03/22/18 History cinacalcet [Sensipar] 60 mg PO DAILY 03/22/18 03/22/18 History clopidogrel 75 mg PO DAILY 03/22/18 03/22/18 History sucroferric oxyhydroxide [Velphoro] 1,000 mg PO TID 03/22/18 03/22/18 History Results - Labs CBC & Chem 7: 03/22/18 16:28 03/22/18 16:28 Labs: Short CBC 03/22/18 Range/Units 16:28 WBC 8.4 (4.0-11.0) th/mm3 Hgb 13.1 (13.0-17.0) gm/dL Hct 38.9 L (39.0-51.0) % Plt Count 209 (150-450) th/mm3 [facility] 03/22/18 16:28 Sodium 136 Potassium 9.1 H* Chloride 102 Carbon Dioxide 22.5 BUN 87 H Creatinine 12.54 H* Calcium 9.5 Cardiac Enzymes 03/22/18 Range/Units 16:28 Total Creatine Kinase 112 (39-308) U/L CK-MB (CK-2) 2.5 (0.5-3.6) ng/mL Troponin I 0.03 (0.02-0.05) ng/mL Liver Function 03/22/18 Range/Units 16:28 Total Bilirubin 0.4 (0.2-1.0) mg/dL AST 29 (15-37) U/L ALT 25 (12-78) U/L Alkaline Phosphatase 116 (45-117) U/L Albumin 3.9 (3.4-5.0) g/dL - Imaging Impressions Chest X-Ray 03/22/18 15:55 CONCLUSION: Cardiomegaly. No acute pulmonary disease. - ECG Prior ECG tracings: available for review Interpretation: Bradycardic rhythm/the heart block with peaked T waves Exam Vital signs: Vital Signs 03/22/18 12:50 03/22/18 15:53 03/22/18 17:36 Temperature 97.5 F L Pulse Rate 43 L 56 L 55 L Respiratory Rate 16 17 19 Blood Pressure 143/67 H 185/79 H Pulse Oximetry 97 96 Intake & Output 03/21/18 03/22/18 03/22/18 18:59 06:59 18:59 Weight 87.2 kg Narrative: GENERAL: 60-year-old -[place] male currently resting in bed in no acute distress SKIN: Warm and dry. HEAD: Atraumatic. Normocephalic. EYES: Left eye enucleated .. No scleral icterus right eye. No injection or drainage. ENT: No nasal bleeding or discharge. Mucous membranes pink and moist. NECK: Trachea midline. No JVD. CARDIOVASCULAR: Bradycardic, irregular. S1, S2 no S4 without murmur. RESPIRATORY: Clear to auscultation. Breath sounds equal bilaterally. GASTROINTESTINAL: Abdomen soft, non-tender, slightly protuberant. Hypoactive bowel sounds appreciated. MUSCULOSKELETAL: Extremities without clubbing, cyanosis, or edema. No obvious deformities. Left AV fistula upper extremity with positive thrill NEUROLOGICAL: Awake and alert. No obvious cranial nerve deficits. Motor grossly within normal limits. Five out of 5 muscle strength in the arms and legs. Normal speech. PSYCHIATRIC: Appropriate mood and affect; insight and judgment normal. Caprini VTE Risk Assessment Caprini VTE Risk Assessment: Moderate/High Risk (score >= 2) Caprini Risk Assessment Model: Point Value = 1 Point Value = 2 Point Value = 3 Point Value = 5 Age 41-60 Minor surgery BMI > 25 kg/m2 Swollen legs Varicose veins or History of unexplained or recurrent spontaneous Oral contraceptives or hormone replacement Sepsis (< 1 month) Serious lung disease, including pneumonia (< 1 month) Abnormal pulmonary function Acute myocardial infarction Congestive heart failure (< 1 month) History of inflammatory bowel disease Medical patient at bed rest Age 61-74 Arthroscopic surgery Major open surgery (> 45 min) Laparoscopic surgery (> 45 min) Malignancy Confined to bed (> 72 hours) Immobilizing plaster cast Central venous access Age >= 75 History of VTE Family history of VTE Factor V Leiden Prothrombin [id number] Lupus anticoagulant Anticardiolipin antibodies Elevated serum homocysteine Heparin-induced thrombocytopenia Other congenital or acquired thrombophilia Stroke (< 1 month) Elective arthroplasty Hip, pelvis, or leg fracture Acute spinal cord injury (< 1 month) Prophylaxis Regimen: Total Risk Factor Score Risk Level Prophylaxis Regimen 0-1 Low Early ambulation 2 Moderate Order ONE of the following: *Sequential Compression Device (SCD) *Heparin 5000 units SQ BID 3-4 Higher Order ONE of the following medications: *Heparin 5000 units SQ TID *Enoxaparin/Lovenox 40 mg SQ daily (WT < 150 kg, CrCl > 30 mL/min) *Enoxaparin/Lovenox 30 mg SQ daily (WT < 150 kg, CrCl > 10-29 mL/min) *Enoxaparin/Lovenox 30 mg SQ BID (WT < 150 kg, CrCl > 30 mL/min) AND/OR *Sequential Compression Device (SCD) 5 or more Highest Order ONE of the following medications: *Heparin 5000 units SQ TID (Preferred with Epidurals) *Enoxaparin/Lovenox 40 mg SQ daily (WT < 150 kg, CrCl > 30 mL/min) *Enoxaparin/Lovenox 30 mg SQ daily (WT < 150 kg, CrCl > 10-29 mL/min) *Enoxaparin/Lovenox 30 mg SQ BID (WT < 150 kg, CrCl > 30 mL/min) AND *Sequential Compression Device (SCD) Assessment and Plan - Assessment and Plan Plan: Neuro/Psych: History of enucleation left eye Acetaminophen 650 mg mouth every 6 hours as needed fever Hydrocodone/acetaminophen 5/325 1 tablet every 4 hours as needed pain 1 through 5 Morphine sulfate 2 mg IV every 2 hours as needed pain 6 or 10 CV: Complete heart block likely secondary to severe hyperkalemia Coronary artery disease status post bare-metal stent to the ostial first diagonal 03/[address] Chavira currently on clopidogrel 75 mg daily 1 year and aspirin 162 mg daily indefinite Essential hypertension Hyperlipidemia Chronic diastolic heart failure ejection fraction 45% with anterolateral hypokinesis on cardiac catheterization 03/01 Mild three-vessel coronary disease Patient is currently hemodynamic stable. Likely will resolve with stat hemodialysis. Continue carvedilol 25 mg twice daily, aspirin 160 mg daily and clopidogrel 75 mg daily/home medication EKG in a.m. order. Troponin and TSH were ordered Resp: History of tobaccoism/cigars quit 5 years ago. 40 year history Nasal cannula to maintain saturations greater than equal to 92% Incentive spirometry while awake Follow-up on chest x-ray GI: History of bowel perforation status post reversal colostomy Elevated ammonia Elevated total protein Renal diet Pantoprazole for GI prophylaxis Docusate sodium/senna 1 tablet twice daily for bowel regimen Lactulose 30 cc in AM for elevated NH3+ : No indication for Villegas catheter Endo: Sliding scale insulin if indicated to maintain euglycemia. Check TSH Renal: End-stage renal disease acute hypertensive nephrosclerosis status post hemodialysis Thursday//Thursday Secondary hyperparathyroidism Currently receiving stat hemodialysis Continue cinacalcet 60 mg daily for secondary hyperparathyroidism Heme: CBC essentially within normal limits. Recheck in a.m. along with INR Continue sucroferrous oxyhydroxide 1000 mg twice daily ID: Monitor for signs and since hematology infection MSK PT evaluate and treat FEN: Severe hyperpotassemia Replace electrolytes as clinically indicate Status post hemodialysis. Received D50/insulin and bicarbonate in ED Recheck this evening Access -Utilize peripheral IV. Central line if indicated Prophylaxis -GI -pantoprazole -DVT -SCD/heparin subcu Level 3 admit
[2018-03-22] MEDS ORDERED: hydrALAZINE 25 MG Tablet PO PRN (18:45)
[2018-03-22] MEDS ORDERED: Sod Chloride 0.9% Inj 1,000 ML IV.CONT PRN (19:50)
[2018-03-22] MEDS ORDERED: Sod Chloride 0.9% Inj 1,000 ML OTHER PRN ×2 (19:50)
[2018-03-22] MEDS ORDERED: Albumin Human 25% Inj 100 ML IV.SIG PRN (19:50)
[2018-03-22] MEDS ORDERED: Heparin 10,000 UNITS/10 ML Vial (for IV use) IV.FLUSH PRN (19:50)
[2018-03-22] MEDS ORDERED: Heparin 10,000 UNITS/10 ML Vial (for IV use) OTHER PRN (19:50)
[2018-03-22] MEDS ORDERED: Gelatin 12 MM/7 MM Topical Foam TOPICAL PRN (19:50)
--- NOTE | 2018-03-22 19:50 | P.CONNP ---
History of Present Illness Service: Nephrology Reason for Consult: ESRD, hyperkalemia Primary Care Provider: UNKNOWN Family Provider: No Primary Care Physician Chief Complaint: Dizziness dizziness History of Present Illness: Mr. Mancuso is a 68 year old male with history of ESRD, hypertension who presented to the ER with vague complaints of tingling and numbness in the lower extremities. He also felt weak in the lower extremities, was unable to ambulate. In the ER, he was noted to have serum potassium of 9.1, with EKG changes. He received Calcium, insulin and dextrose as well as Kayexalate ordered by ER physician. I was notified by ER physician, and emergency dialysis was arranged. I saw him in the ER. Patient was awake, alert, able to provide history. Review of Systems Constitutional: Reports body ache(s), Denies anorexia, Denies chills Eyes: Reports blurry vision Ears, Nose, Mouth, and Throat: Denies abnormal hearing, Denies bleeding gums, Denies nosebleed, Denies sinus pain Cardiovascular: Denies chest pain, Denies leg swelling, Denies rapid, pounding, or irregular heartbeat Gastrointestinal: Denies abdominal pain, Denies belching Musculoskeletal: Reports abnormal walking, Reports body aches, Denies back pain , Denies joint pain, Denies joint swelling Endocrine: Denies cold intolerance Hematologic/Lymphatic: Denies easy bleeding, Denies easy bruising Allergic/Immunologic: Denies GI upset with certain foods PMFSH - History History Provided By: Patient - Medical History Medical History: Medical History (Last Reviewed 03/22/18 @ 18:33 by Ariel Barnhart MD) AV fistula Dialysis patient High cholesterol Hypertension Renal failure - Surgical History Surgical History: Surgical History (Last Reviewed 03/22/18 @ 18:33 by Ariel Barnhart MD) History of colon resection Stented coronary artery - Family History Family History: Family History (Last Updated 03/22/18 @ 18:33 by Ariel Barnhart MD) Mother Family history of cancer - Tobacco History Second Hand Smoke Exposure: No Tobacco Use In Past 30 Days: No Smoking Status: Former smoker Tobacco Type: Cigars - Alcohol History How Often Do You Have a Drink Containing Alcohol: Never - Substance Use History Substance History: Past History - Travel History Recent Travel in the [place] Within the Last 8 Weeks: No Recent Travel Out of the Country Within the Last 8 Weeks: No - Immunization History Tetanus Immunization: <5 Years Hx Influenza Vaccine This Season: Yes Medications and Allergies Active Medications: Active Medications Acetaminophen (Tylenol) 650 mg PO Q6H PRN PRN Reason: FEVER Hydrocodone Bitart/Acetaminophen ([place] 5/325) 1 tab PO Q4H PRN PRN Reason: PAIN SCALE 1 TO 5 Al Hydroxide/Mg Hydroxide (Milk Of Magnesia Liq) 30 ml PO Q12H PRN PRN Reason: Mild Constipation Albuterol (Albuterol Neb (Prn)) 2.5 mg NEB Q2HR NEB PRN PRN Reason: SHORTNESS OF BREATH/WHEEZING Aspirin (Ecotrin) 162 mg PO DAILY [facility] Atorvastatin Calcium (Lipitor) 40 mg PO DAILY [facility] Bisacodyl (Dulcolax Supp) 10 mg RECTAL DAILY PRN PRN Reason: SEVERE CONSITIPATION Chlorhexidine Gluconate (Chlorhexidine 2% Cloth) 3 pack TOPICAL DAILY@0400 DARCI Stop: 03/28/18 03:59 Chlorhexidine Gluconate (Chlorhexidine 2% Cloth) 3 pack TOPICAL DAILY@0400 PRN PRN Reason: Extra cloth needed Stop: 03/28/18 03:59 Clopidogrel Bisulfate (Plavix) 75 mg PO DAILY [facility] Heparin Sodium (Porcine) (Heparin Inj) 5,000 units SQ Q12H [facility] Hydralazine HCl (Apresoline) 25 mg PO TID PRN PRN Reason: SBP>160, DBP>90 Lactulose (Lactulose Liq) 30 ml PO DAILY PRN PRN Reason: SEVERE CONSITIPATION Morphine Sulfate (Morphine Inj) 2 mg IV.PUSH Q2H PRN PRN Reason: PAIN SCALE 6 TO 10 Non-Formulary Medication (B Complex-Vitamin C-Folic Acid [Nephro-Diana]) 1 tab PO DAILY [facility] Non-Formulary Medication (Carvedilol [Carvedilol]) 25 mg PO BID [facility] Non-Formulary Medication (Cinacalcet [Sensipar]) 60 mg PO DAILY [facility] Non-Formulary Medication (Sucroferric Oxyhydroxide [Velphoro]) 1,000 mg PO TID [facility] Ondansetron HCl (Zofran Odt) 4 mg PO Q6H PRN PRN Reason: NAUSEA OR VOMITING Pantoprazole Sodium (Protonix) 40 mg PO DAILY [facility] Senna/Docusate Sodium (Armida-Colace) 1 tab PO BID [facility] Sennosides (Senokot) 17.2 mg PO Q12H PRN PRN Reason: Moderate Constipation Sodium Chloride (Ns Flush) 2 ml IV.FLUSH UNSCH PRN PRN Reason: FLUSH AFTER USING IV ACCESS Sodium Chloride (Ns Flush) 2 ml IV.FLUSH BID [facility] Allergies Allergy/AdvReac Type Severity Reaction Status Date / Time No Known Allergies Allergy Unverified 02/14/18 07:25 Home Medications Medication Instructions Recorded Confirmed Type B complex-vitamin C-folic acid 1 tab PO DAILY 03/22/18 03/22/18 History [Nephro-Diana] aspirin [Aspir-81] 162 mg PO DAILY 03/22/18 03/22/18 History atorvastatin 40 mg PO DAILY 03/22/18 03/22/18 History carvedilol 25 mg PO BID 03/22/18 03/22/18 History cinacalcet [Sensipar] 60 mg PO DAILY 03/22/18 03/22/18 History clopidogrel 75 mg PO DAILY 03/22/18 03/22/18 History sucroferric oxyhydroxide [Velphoro] 1,000 mg PO TID 03/22/18 03/22/18 History Exam Vital signs: Vital Signs 03/22/18 12:50 03/22/18 15:53 03/22/18 17:36 Temperature 97.5 F L Pulse Rate 43 L 56 L 55 L Respiratory Rate 16 17 19 Blood Pressure 143/67 H 185/79 H Pulse Oximetry 97 96 03/22/18 18:45 Temperature Pulse Rate 76 Respiratory Rate 21 Blood Pressure 191/88 H Pulse Oximetry 96 Intake & Output 03/22/18 03/22/18 03/23/18 06:59 18:59 06:59 Weight 87.2 kg - Constitutional no acute distress - Routine HEENT Exam Head: Present: normocephalic - Detailed Eye Exam Eyelids: Bilateral normal inspection (left eye blindness) - Routine Neck Exam Present: supple. Absent: JVD, carotid bruit, thyromegaly - Routine Chest/Breast/Axilla Exam Chest wall: Absent: tenderness, mass, pacemaker, chest tube Axillae: Absent: lymphadenopathy - Routine Abdominal Exam Present: soft, normoactive bowel sounds. Absent: tenderness, distended, rebound , organomegaly, mass - Routine Neurological Exam Present: alert, oriented X3, CN II-XII intact Results - Lab Results 03/22/18 16:28 03/22/18 16:28 Most recent lab results Calcium 9.5 mg/dL (8.5-10.1) 03/22/18 16:28 Phosphorus 6.4 mg/dL (2.5-4.9) H 03/22/18 16:28 Assessment and Plan - Assessment (1) Acute hyperkalemia Code(s): E87.5 - Hyperkalemia Status: Acute Plan: Emergency dialysis was arranged, dialysis nurse is here to initiate dialysis. Dialysis on 1K, for 4 hours. Repeat labs tomorrow. We discussed his food habits , and reviewed some of the potassium rich foods. It appears that he has been consuming a lot of fruits. May need liner man consult. We discussed some of the foods to avoid. It should be noted that he did attend dialysis on Thursday as scheduled, and he was supposed to have dialysis tomorrow. Patient had EKG changes, treated appropriately with Calcium. Monitor. (2) End stage renal disease Code(s): N18.6 - End stage renal disease Status: Chronic Plan: Usual dialysis is TTS. Dialysis today emergently because of hyperkalemia. Most likely he will dialysis again tomorrow. No need for Epogen. (3) Essential (primary) hypertension Code(s): I10 - Essential (primary) hypertension Status: Chronic Plan: Monitor after fluid removal and dialysis. Continue Carvedilol. - Attending Attestation Thanks for the consult.
--- NOTE | 2018-03-22 23:31 | CT ---
EXAM DATE: 03/22/2018 11:26 PM EDT AGE/SEX: 68 years / Male INDICATIONS: Numbness and tingling in hands and feet. Dizziness. CLINICAL DATA: This is the patient's initial encounter. Patient reports that signs and symptoms have been present for 1 day and indicates a pain score of 0/10. MEDICAL/SURGICAL HISTORY: Hypertension. Renal failure, dialysis. . AV fistula RADIATION DOSE: 66.34 CTDI (mGy) ; Patient motion COMPARISON: No prior exams available for comparison. TECHNIQUE: CT of the head without contrast. Using automated exposure control and adjustment of the mA and/or kV according to patient size, radiation dose was kept as low as reasonably achievable to ob tain optimal diagnostic quality images. DICOM format image data is available electronically for revi ew and comparison. FINDINGS: Cerebrum: Mild diffuse cerebral atrophy. The ventricles are normal for degree of atrophy. Prominent periventricular white matter hypodensities. Very small bilateral basal ganglial lacunar infarcts. No evidence of midline shift, mass lesion, hemorrhage or acute infarction. No extraaxial fluid collecti ons are seen. Posterior Fossa: The cerebellum and brainstem are intact. The 4th ventricle is midline. The cerebe llopontine angle is unremarkable. Extracranial: The visualized portion of the orbits is intact. Skull: The calvaria is intact. No evidence of skull fracture. CONCLUSION: 1. Senescent changes with prominent periventricular ischemic white matter demyelination and small re mote bilateral basal ganglia lacunar infarcts. 2. No acute intracranial abnormality. Electronically signed by: Mayito Schultz MD 03/22/2018 11:29 PM EDT
[2018-03-23] MEDS ORDERED: niCARdipine Inj 25 MG in Sodium Chlor 0.9% Inj 240 ML IV.CONT PRN (01:29)
[2018-03-23] MEDS ORDERED: Chlorhexidine Gluconate 2% 1 Pack (2 Cloths) TOPICAL PRN (04:00)
[2018-03-23] MEDS ORDERED: Chlorhexidine Gluconate 2% 1 Pack (2 Cloths) TOPICAL SCH (04:00)
[2018-03-23 05:50] LABS: Baso # (Auto) 0.1 th/mm3 (0.0-0.2); Baso % (Auto) 0.8 % (0.0-2.0); Eos # (Auto) 0.2 th/mm3 (0.0-0.4); Eos % (Auto) 3.1 % (0.0-4.0); Hemoglobin 12.9 gm/dL (13.0-17.0); Lymph # (Auto) 1.1 th/mm3 (1.0-4.8); Mean Corpuscular HGB Conc 32.3 % (32.0-36.0); Mean Corpuscular Hemoglobin 31.3 pg (27.0-34.0); Mean Platelet Volume 8.3 fL (7.0-11.0); Mono % (Auto) 13.1 % (0.0-8.0); Platelet Count 199 th/mm3 (150-450); Red Blood Count 4.13 mil/mm3 (4.50-5.90); Red Cell Distribution Width 18.6 % (11.6-17.2); White Blood Count 7.3 th/mm3 (4.0-11.0)
[2018-03-23 05:57] LABS: Activated Partial Thrombo Time 23.2 sec (24.3-30.1); INR 1.1 Ratio; Prothrombin Time 10.7 sec (9.8-11.6)
[2018-03-23 06:25] LABS: Calcium 9.3 mg/dL (8.5-10.1); Carbon Dioxide 31.6 meq/L (21.0-32.0); Potassium 4.1 meq/L (3.5-5.1); Troponin I 0.09 ng/mL (0.02-0.05)
[2018-03-23 06:33] LABS: Alanine Aminotransferase 26 U/L (12-78); Albumin 3.5 g/dL (3.4-5.0); Alkaline Phosphatase 103 U/L (45-117); Anion Gap 12 meq/L (5-15); Aspartate Aminotransferase 18 U/L (15-37); Blood Urea Nitrogen 39 mg/dL (7-18); Calcium 9.2 mg/dL (8.5-10.1); Carbon Dioxide 31.8 meq/L (21.0-32.0); Chloride 97 meq/L (98-107); Glomerular Filtration Rate 8 mL/min (>89); Glucose,Random 78 mg/dL (74-106); Magnesium 2.2 mg/dL (1.5-2.5); Phosphorus 6.1 mg/dL (2.5-4.9); Potassium 3.9 meq/L (3.5-5.1); Sodium 141 meq/L (136-145); Thyroid Stimulating Hormone 0.538 uIU/mL (0.358-3.740); Total Protein 7.8 g/dL (6.4-8.2)
--- NOTE | 2018-03-23 07:38 | P.PNCC ---
Subjective Subjective Remarks/Hospital Course: 68-year-old AA male. Date of admission 03/22/2018. Past medical history includes with end-stage renal disease secondary to hypertensive nephrosclerosis on hemodialysis Thursday//Thursday, history of cardiac stents last month to the first diagonal OM by Dr. Chavira, mild coronary disease who presents emergency department evaluation of acute onset of extremity numbness and tingling, dizziness bloated abdomen, and blurred vision started 1130 this morning. He states that he did have dialysis Thursday. He denies fever, chills , chest pain, abdominal pain, leg pain. Patient was placed on the monitor is noted to have a heart block with a junctional rhythm/bradycardia with peaked T waves. Potassium is 9.1. Patient did receive bicarbonate, glucose/D50 is been started on emergent hemodialysis through his left AV fistula. He is currently denying chest pain, shortness of breath is quite hypertensive in the room. He seemed medically stable. 03/23: Received emergency HD. K normalized, now 3.9. Denies any chest pain or SOB. On the monitor patient has normal sinus rhythm Objective Vital Signs / I&O: Vital Signs 03/22/18 12:50 03/22/18 15:53 03/22/18 17:36 Temperature 97.5 F L Pulse Rate 43 L 56 L 55 L Respiratory Rate 16 17 19 Blood Pressure 143/67 H 185/79 H Pulse Oximetry 97 96 03/22/18 18:45 03/22/18 19:00 03/22/18 20:00 Temperature Pulse Rate 76 72 70 Respiratory Rate 21 17 13 Blood Pressure 191/88 H 192/89 H 202/91 H Pulse Oximetry 96 96 97 03/22/18 20:26 03/22/18 21:00 03/23/18 00:00 Temperature 98.1 F Pulse Rate 72 78 Respiratory Rate 12 16 Blood Pressure 194/92 H 193/98 H Pulse Oximetry 98 98 100 03/23/18 01:00 03/23/18 02:00 03/23/18 03:00 Temperature Pulse Rate 74 78 75 Respiratory Rate 14 12 14 Blood Pressure 184/86 H 213/87 H Pulse Oximetry Intake & Output 03/22/18 03/23/18 03/23/18 18:59 06:59 18:59 Output Total 4000 / 4000 Balance -4000 / -4000 Weight 87.2 kg 84.1 kg Output: Hemodialysis Amount 4000 / 4000 Other: Weight On Admission 84.1 kg Result Diagrams: 03/23/18 05:35 03/23/18 05:27 Objective Remarks: GENERAL: 60-year-old -[place] male currently resting in bed in no acute distress SKIN: Warm and dry. HEAD: Atraumatic. Normocephalic. EYES: Left eye enucleated. No scleral icterus right eye. No injection or drainage. ENT: No nasal bleeding or discharge. Mucous membranes pink and moist. NECK: Trachea midline. No JVD. CARDIOVASCULAR: Normal sinus rhythm. S1, S2 no S4 without murmur. RESPIRATORY: Clear to auscultation. Breath sounds equal bilaterally. GASTROINTESTINAL: Abdomen soft, non-tender, slightly protuberant. Hypoactive bowel sounds appreciated. MUSCULOSKELETAL: Extremities without clubbing, cyanosis, or edema. No obvious deformities. Left AV fistula upper extremity with positive thrill NEUROLOGICAL: Awake and alert. No obvious cranial nerve deficits. Motor grossly within normal limits. Assessment and Plan - Assessment and Plan Plan: Neuro/Psych: History of enucleation left eye Acetaminophen 650 mg mouth every 6 hours as needed fever Hydrocodone/acetaminophen 5/325 1 tablet every 4 hours as needed pain 1 through 5 Morphine sulfate 2 mg IV every 2 hours as needed pain 6 or 10 CV: Complete heart block likely secondary to severe hyperkalemia-resolved Coronary artery disease status post bare-metal stent to the ostial first diagonal 03/[address] Chavira Essential hypertension Hyperlipidemia Chronic diastolic heart failure ejection fraction 45% with anterolateral hypokinesis on cardiac catheterization 03/01 Mild three-vessel coronary disease Patient is currently hemodynamic stable. Heart block has resolved with hemodialysis and correction of hyperkalemia Continue aspirin 160 mg daily and clopidogrel 75 mg daily/home medication. Hold carvedilol 25 mg twice daily, resume today EKG in a.m. pending. Troponin and TSH were ordered Resp: History of tobaccoism/cigars quit 5 years ago. 40 year history Nasal cannula to maintain saturations greater than equal to 92% Incentive spirometry while awake Follow-up on chest x-ray GI: History of bowel perforation status post reversal colostomy Elevated ammonia Elevated total protein Renal diet Pantoprazole for GI prophylaxis Docusate sodium/senna 1 tablet twice daily for bowel regimen Lactulose 30 cc in AM for elevated NH3+ Endo: Sliding scale insulin if indicated to maintain euglycemia. Renal: End-stage renal disease acute hypertensive nephrosclerosis status post hemodialysis Thursday//Thursday Secondary hyperparathyroidism s/p stat hemodialysis Continue cinacalcet 60 mg daily for secondary hyperparathyroidism Heme: CBC essentially within normal limits. Continue sucroferrous oxyhydroxide 1000 mg twice daily ID: Monitor for signs and since hematology infection MSK PT evaluate and treat FEN: Severe hyperpotassemia Replace electrolytes as clinically indicate Status post hemodialysis. Hyperkalemia medically treated in the ED Access -Utilize peripheral IV. Central line if indicated Prophylaxis -GI -pantoprazole -DVT -SCD/heparin subcu Level 2 [facility] to assume care in am. Transfer to Med surg with Tele
[2018-03-23] MEDS ORDERED: SUCROFERRIC OXYHYDROXIDE 1000 MG PO SCH (09:00)
--- NOTE | 2018-03-23 09:58 | P.PNNP ---
Subjective Interval history: Patient is on Cardene drip. Feels well. He is NSR. Denies chest pain. Physical Exam Vital signs: Vital Signs 03/22/18 12:50 03/22/18 15:53 03/22/18 17:36 Temperature 97.5 F L Pulse Rate 43 L 56 L 55 L Respiratory Rate 16 17 19 Blood Pressure 143/67 H 185/79 H Pulse Oximetry 97 96 03/22/18 18:45 03/22/18 19:00 03/22/18 20:00 Temperature Pulse Rate 76 72 70 Respiratory Rate 21 17 13 Blood Pressure 191/88 H 192/89 H 202/91 H Pulse Oximetry 96 96 97 03/22/18 20:26 03/22/18 21:00 03/23/18 00:00 Temperature 98.1 F Pulse Rate 72 78 Respiratory Rate 12 16 Blood Pressure 194/92 H 193/98 H Pulse Oximetry 98 98 100 03/23/18 01:00 03/23/18 02:00 03/23/18 03:00 Temperature Pulse Rate 74 78 75 Respiratory Rate 14 12 14 Blood Pressure 184/86 H 213/87 H Pulse Oximetry 03/23/18 04:00 03/23/18 05:00 03/23/18 06:00 Temperature 98.4 F Pulse Rate 77 75 72 Respiratory Rate 14 14 14 Blood Pressure 190/89 H 156/70 H 162/73 H Pulse Oximetry 94 L 96 96 03/23/18 07:00 03/23/18 07:48 Temperature Pulse Rate 73 Respiratory Rate 14 Blood Pressure 155/72 H Pulse Oximetry 93 L 95 Intake & Output 03/22/18 03/23/18 03/23/18 18:59 06:59 18:59 Intake Total Output Total 4000 / 4000 Balance -3990 / -3990 Weight 87.2 kg 85 kg Intake: Oral Output: Urine 0 / 0 Hemodialysis Amount 4000 / 4000 Other: # Voids 0 Date of Last Bowel Movement 03/23/18 # Bowel Movements 2 Weight On Admission 84.1 kg - Constitutional no acute distress - Routine HEENT Exam Head: Present: normocephalic ENT: Present: mucous membranes moist - Routine Neck Exam Present: supple. Absent: JVD, carotid bruit - Routine Respiratory Exam Present: CTA bilaterally - Routine Cardiovascular Exam Present: RRR, S1, S2 - Routine Abdominal Exam Present: soft, normoactive bowel sounds - Routine Extremities Exam Absent: edema - Routine Skin Exam Present: intact - Routine Neurological Exam Present: alert, oriented X3 - Routine Psychiatric Exam Present: normal affect, normal thought process Assessment and Plan - Assessment (1) Acute hyperkalemia Code(s): E87.5 - Hyperkalemia Status: Acute Plan: Improved after emergency dialysis yesterday. We again discussed foods to avoid to prevent recurrence of hyperkalemia. I believe he was eating a combination of different fruits and ice cream. Patient was advised to avoid this habit. (2) End stage renal disease Code(s): N18.6 - End stage renal disease Status: Chronic Plan: Dialysis again today. Continue dialysis TTS (3) Essential (primary) hypertension Code(s): I10 - Essential (primary) hypertension Status: Chronic Plan: Continue Carvedilol. Taper off Cardene drip as tolerated. Dialysis again today. (4) Metabolic bone disease Code(s): E88.9 - Metabolic disorder, unspecified; M90.80 - Osteopathy in diseases classified elsewhere, unspecified site Status: Acute Plan: Continue Sensipar. He takes Velphoro, obtain phosphorus level.
[2018-03-23] MEDS: Heparin - SQ 10,000 UNITS/ML Vial SQ SCH ×2 (10:53→21:37)
[2018-03-23] MEDS: Carvedilol 12.5 MG Tablet PO SCH ×2 (10:53→21:37)
[2018-03-23] MEDS: Vitamin B Complex/Vit C/Folic Tablet PO SCH (10:54)
[2018-03-23] MEDS: Senna/Docusate Sodium 8.6/50 MG Tablet PO SCH ×2 (10:54→21:37)
--- NOTE | 2018-03-23 14:43 | ECG ---
Date Performed: 03/23/2018 Time Performed: 12:22:33 PTAGE: 68 years EKG: Sinus rhythm POSSIBLE LEFT ATRIAL ENLARGEMENT POSSIBLE LEFT VENTRICULAR HYPERTROPHY ABNORMAL ECG No significant c hange from prior electrocardiogram. PREVIOUS TRACING : 03/23/2018 06.47 DOCTOR: Alcon Benedict Interpretating Date/Time 03/23/2018 14:41:43
--- NOTE | 2018-03-23 19:10 | ECG ---
Date Performed: 03/22/2018 Time Performed: 17:05:55 PTAGE: 68 years EKG: ECTOPIC ATRIAL BRADYCARDIA WITH FIRST DEGREE AV BLOCK WITH FREQUENT SUPRAVENTRICULAR PREMAT URE COMPLEXES IN A BIGEMINAL PATTERN LEFT ATRIAL ENLARGEMENT INTRAVENTRICULAR CONDUCTION DELAY POSSIB LE LEFT VENTRICULAR HYPERTROPHY POSSIBLE SEPTAL MYOCARDIAL INFARCTION ABNORMAL ECG PREVIOUS TRACING : 02/15/2018 04.30 When compared to prior ekg, patient is now ectopic atrial b radycardia or junctional bradycardia with PAC's DOCTOR: Anup Mayer Interpretating Date/Time 03/23/2018 19:09:14
--- NOTE | 2018-03-23 19:12 | ECG ---
Date Performed: 03/23/2018 Time Performed: 06:47:50 PTAGE: 68 years EKG: Sinus rhythm . Left ventricular hypertrophy Abnormal ECG PREVIOUS TRACING : 03/22/2018 17.05 When compared to prior ekg, patient has converted from an e ctopic atrial bradycardia to Sinus rythm. DOCTOR: Anup Mayer Interpretating Date/Time 03/23/2018 19:10:05
[2018-03-24 07:40] LABS: Hematocrit 40.6 % (39.0-51.0); Hemoglobin 13.2 gm/dL (13.0-17.0); Mean Corpuscular HGB Conc 32.4 % (32.0-36.0); Mean Corpuscular Hemoglobin 31.7 pg (27.0-34.0); Mean Corpuscular Volume 97.9 fL (80.0-100.0); Mean Platelet Volume 8.4 fL (7.0-11.0); Platelet Count 198 th/mm3 (150-450); Red Blood Count 4.15 mil/mm3 (4.50-5.90); Red Cell Distribution Width 18.5 % (11.6-17.2); White Blood Count 5.8 th/mm3 (4.0-11.0)
[2018-03-24 08:10] LABS: Alanine Aminotransferase 26 U/L (12-78); Albumin 3.2 g/dL (3.4-5.0); Anion Gap 12 meq/L (5-15); Aspartate Aminotransferase 29 U/L (15-37); Blood Urea Nitrogen 40 mg/dL (7-18); Calcium 9.2 mg/dL (8.5-10.1); Carbon Dioxide 28.8 meq/L (21.0-32.0); Chloride 97 meq/L (98-107); Glomerular Filtration Rate 7 mL/min (>89); Glucose,Random 92 mg/dL (74-106); Potassium 4.5 meq/L (3.5-5.1); Sodium 138 meq/L (136-145)
[2018-03-24 08:13] LABS: Alkaline Phosphatase 106 U/L (45-117); Phosphorus 6.3 mg/dL (2.5-4.9); Total Protein 7.8 g/dL (6.4-8.2)
--- NOTE | 2018-03-24 08:26 | P.PNNP ---
Subjective Interval history: Patient was seen and examined. Doing well. BP is acceptable. Eating breakfast. Short run of SVT yesterday. Denies chest pain Physical Exam Vital signs: Vital Signs 03/23/18 09:00 03/23/18 10:00 03/23/18 11:00 Temperature Pulse Rate 71 78 88 Respiratory Rate 13 16 18 Blood Pressure 143/67 H 159/77 H 143/67 H Pulse Oximetry 94 L 94 L 97 03/23/18 11:42 03/23/18 12:00 03/23/18 12:30 Temperature 97.6 F Pulse Rate 72 73 74 Respiratory Rate 15 10 L 29 H Blood Pressure 145/65 H 146/70 H Pulse Oximetry 97 96 100 03/23/18 13:00 03/23/18 13:30 03/23/18 13:45 Temperature Pulse Rate 73 69 68 Respiratory Rate 27 H 16 15 Blood Pressure 146/74 H 140/71 139/74 Pulse Oximetry 95 96 96 03/23/18 14:00 03/23/18 14:15 03/23/18 14:30 Temperature Pulse Rate 67 70 68 Respiratory Rate 12 16 15 Blood Pressure 150/79 H 141/72 H 143/74 H Pulse Oximetry 97 99 99 03/23/18 14:45 03/23/18 15:00 03/23/18 15:15 Temperature Pulse Rate 71 70 68 Respiratory Rate 14 14 23 Blood Pressure 141/73 H 148/73 H 138/65 Pulse Oximetry 97 98 97 03/23/18 15:30 03/23/18 15:45 03/23/18 16:00 Temperature 97.6 F Pulse Rate 68 72 73 Respiratory Rate 15 12 21 Blood Pressure 137/67 129/65 132/66 Pulse Oximetry 99 99 98 03/23/18 16:15 03/23/18 16:30 03/23/18 16:45 Temperature Pulse Rate 75 72 71 Respiratory Rate 23 23 24 Blood Pressure 123/59 L 142/82 H 148/76 H Pulse Oximetry 97 97 99 03/23/18 17:00 03/23/18 17:13 03/23/18 17:30 Temperature Pulse Rate 72 72 71 Respiratory Rate 25 H 30 H 26 H Blood Pressure 110/57 L 113/58 L Pulse Oximetry 100 100 98 03/23/18 18:00 03/23/18 18:01 03/23/18 18:31 Temperature Pulse Rate 84 75 69 Respiratory Rate 45 H 31 H 29 H Blood Pressure 192/100 H 126/61 Pulse Oximetry 97 97 95 03/23/18 19:00 03/23/18 19:30 03/23/18 20:00 Temperature 97.9 F Pulse Rate 67 67 67 Respiratory Rate 16 17 16 Blood Pressure 133/65 125/71 Pulse Oximetry 95 97 97 03/23/18 20:01 03/23/18 20:30 03/23/18 21:00 Temperature Pulse Rate 68 72 67 Respiratory Rate 17 17 17 Blood Pressure 151/68 H 143/67 H 151/71 H Pulse Oximetry 98 99 99 03/23/18 21:31 03/23/18 22:00 03/23/18 22:30 Temperature Pulse Rate 75 70 69 Respiratory Rate 31 H 17 19 Blood Pressure 136/63 128/72 141/65 H Pulse Oximetry 97 98 97 03/23/18 23:00 03/23/18 23:30 03/24/18 00:00 Temperature 98.5 F Pulse Rate 68 66 65 Respiratory Rate 14 15 29 H Blood Pressure 142/67 H 133/63 154/66 H Pulse Oximetry 96 97 95 03/24/18 00:31 03/24/18 01:00 03/24/18 01:30 Temperature Pulse Rate 63 66 69 Respiratory Rate 18 17 27 H Blood Pressure 128/66 133/62 155/67 H Pulse Oximetry 97 96 96 03/24/18 02:00 03/24/18 02:01 03/24/18 02:30 Temperature Pulse Rate 68 67 67 Respiratory Rate 17 16 15 Blood Pressure 148/68 H 156/72 H Pulse Oximetry 96 97 97 03/24/18 03:00 03/24/18 03:01 03/24/18 03:30 Temperature Pulse Rate 66 67 68 Respiratory Rate 18 15 19 Blood Pressure 123/64 141/71 H Pulse Oximetry 97 98 93 L 03/24/18 04:00 03/24/18 04:01 03/24/18 04:31 Temperature 98.5 F Pulse Rate 66 68 67 Respiratory Rate 18 24 21 Blood Pressure 175/74 H 149/68 H Pulse Oximetry 91 L 97 95 03/24/18 05:00 03/24/18 05:01 03/24/18 05:31 Temperature Pulse Rate 66 68 65 Respiratory Rate 11 L 24 49 H Blood Pressure 133/69 171/76 H Pulse Oximetry 97 99 95 03/24/18 06:00 03/24/18 06:49 03/24/18 07:00 Temperature Pulse Rate 90 70 68 Respiratory Rate 36 H 16 17 Blood Pressure 127/61 138/63 Pulse Oximetry 99 97 Intake & Output 03/23/18 03/24/18 03/24/18 18:59 06:59 18:59 Intake Total 1800 / 1800 800 / 800 Output Total 0 / 0 Balance 1800 / 1800 800 / 800 Weight 85.2 kg Intake: Oral 1800 / 1800 800 / 800 Output: Urine 0 / 0 Other: # Voids 0 Date of Last Bowel Movement 03/24/18 # Bowel Movements 2 1 - Constitutional no acute distress - Routine HEENT Exam Head: Present: normocephalic, atraumatic ENT: Present: mucous membranes moist - Routine Neck Exam Present: supple, full ROM. Absent: JVD, lymphadenopathy - Routine Cardiovascular Exam Present: RRR, S1, S2 - Routine Extremities Exam Present: AV fistula - Routine Skin Exam Present: intact - Routine Neurological Exam Present: alert, oriented X3, CN II-XII intact - Detailed Neurological Exam: Coma Scale Eye Opening: Spontaneous - Routine Psychiatric Exam Present: normal affect Assessment and Plan - Assessment (1) Acute hyperkalemia Code(s): E87.5 - Hyperkalemia Status: Acute Plan: Improved after emergency dialysis . We again discussed foods to avoid to prevent recurrence of hyperkalemia. I believe he was eating a combination of different fruits and ice cream. Patient was advised to avoid this habit. (2) End stage renal disease Code(s): N18.6 - End stage renal disease Status: Chronic Plan: Continue dialysis TTS (3) Essential (primary) hypertension Code(s): I10 - Essential (primary) hypertension Status: Chronic Plan: Continue Carvedilol. BP control has improved. (4) Metabolic bone disease Code(s): E88.9 - Metabolic disorder, unspecified; M90.80 - Osteopathy in diseases classified elsewhere, unspecified site Status: Acute Plan: Continue Sensipar. He takes Velphoro, start Renvela when he is in the hospital. - Attending Attestation Patient can be discharged from renal standpoint.
[2018-03-24] MEDS: Vitamin B Complex/Vit C/Folic Tablet PO SCH (08:57)
[2018-03-24] MEDS: Carvedilol 12.5 MG Tablet PO SCH (08:57)
[2018-03-24] MEDS: Heparin - SQ 10,000 UNITS/ML Vial SQ SCH (08:58)
[2018-03-24] MEDS: Senna/Docusate Sodium 8.6/50 MG Tablet PO SCH (08:59)
--- NOTE | 2018-03-24 15:50 | P.PN ---
Subjective Interval history: no complains no nausea , vomiting, no shrtnes of breath Physical Exam Vital signs: Vital Signs 03/23/18 16:00 03/23/18 16:15 03/23/18 16:30 Temperature 97.6 F Pulse Rate 73 75 72 Respiratory Rate 21 23 23 Blood Pressure 132/66 123/59 L 142/82 H Pulse Oximetry 98 97 97 03/23/18 16:45 03/23/18 17:00 03/23/18 17:13 Temperature Pulse Rate 71 72 72 Respiratory Rate 24 25 H 30 H Blood Pressure 148/76 H 110/57 L Pulse Oximetry 99 100 100 03/23/18 17:30 03/23/18 18:00 03/23/18 18:01 Temperature Pulse Rate 71 84 75 Respiratory Rate 26 H 45 H 31 H Blood Pressure 113/58 L 192/100 H Pulse Oximetry 98 97 97 03/23/18 18:31 03/23/18 19:00 03/23/18 19:30 Temperature Pulse Rate 69 67 67 Respiratory Rate 29 H 16 17 Blood Pressure 126/61 133/65 125/71 Pulse Oximetry 95 95 97 03/23/18 20:00 03/23/18 20:01 03/23/18 20:30 Temperature 97.9 F Pulse Rate 67 68 72 Respiratory Rate 16 17 17 Blood Pressure 151/68 H 143/67 H Pulse Oximetry 97 98 99 03/23/18 21:00 03/23/18 21:31 03/23/18 22:00 Temperature Pulse Rate 67 75 70 Respiratory Rate 17 31 H 17 Blood Pressure 151/71 H 136/63 128/72 Pulse Oximetry 99 97 98 03/23/18 22:30 03/23/18 23:00 03/23/18 23:30 Temperature Pulse Rate 69 68 66 Respiratory Rate 19 14 15 Blood Pressure 141/65 H 142/67 H 133/63 Pulse Oximetry 97 96 97 03/24/18 00:00 03/24/18 00:31 03/24/18 01:00 Temperature 98.5 F Pulse Rate 65 63 66 Respiratory Rate 29 H 18 17 Blood Pressure 154/66 H 128/66 133/62 Pulse Oximetry 95 97 96 03/24/18 01:30 03/24/18 02:00 03/24/18 02:01 Temperature Pulse Rate 69 68 67 Respiratory Rate 27 H 17 16 Blood Pressure 155/67 H 148/68 H Pulse Oximetry 96 96 97 03/24/18 02:30 03/24/18 03:00 03/24/18 03:01 Temperature Pulse Rate 67 66 67 Respiratory Rate 15 18 15 Blood Pressure 156/72 H 123/64 Pulse Oximetry 97 97 98 03/24/18 03:30 03/24/18 04:00 03/24/18 04:01 Temperature 98.5 F Pulse Rate 68 66 68 Respiratory Rate 19 18 24 Blood Pressure 141/71 H 175/74 H Pulse Oximetry 93 L 91 L 97 03/24/18 04:31 03/24/18 05:00 03/24/18 05:01 Temperature Pulse Rate 67 66 68 Respiratory Rate 21 11 L 24 Blood Pressure 149/68 H 133/69 Pulse Oximetry 95 97 99 03/24/18 05:31 03/24/18 06:00 03/24/18 06:49 Temperature Pulse Rate 65 90 70 Respiratory Rate 49 H 36 H 16 Blood Pressure 171/76 H 127/61 Pulse Oximetry 95 99 03/24/18 07:00 03/24/18 07:31 03/24/18 08:00 Temperature 97.2 F L Pulse Rate 68 66 75 Respiratory Rate 17 12 20 Blood Pressure 138/63 162/77 H 157/77 H Pulse Oximetry 97 97 95 03/24/18 08:30 03/24/18 09:00 03/24/18 09:30 Temperature Pulse Rate 74 73 73 Respiratory Rate 22 17 19 Blood Pressure 143/67 H 150/70 H 136/61 Pulse Oximetry 97 98 94 L 03/24/18 10:00 03/24/18 10:31 03/24/18 11:00 Temperature Pulse Rate 69 70 70 Respiratory Rate 13 12 13 Blood Pressure 126/63 130/63 150/67 H Pulse Oximetry 95 97 92 L 03/24/18 11:30 03/24/18 12:00 03/24/18 12:01 Temperature 97.7 F Pulse Rate 66 64 66 Respiratory Rate 14 13 11 L Blood Pressure 154/68 H 154/72 H Pulse Oximetry 96 99 98 Intake & Output 03/23/18 03/24/18 03/24/18 18:59 06:59 18:59 Intake Total 1800 / 1800 800 / 800 Output Total 0 / 0 Balance 1800 / 1800 800 / 800 Weight 85.2 kg Intake: Oral 1800 / 1800 800 / 800 Output: Urine 0 / 0 Other: # Voids 0 Date of Last Bowel Movement 03/24/18 03/23/18 # Bowel Movements 2 1 Narrative: awake and alert, no acute distress anciteric lungs- no rales regula rhythm abdomen soft, nontender axtremities, no edema Results - Labs CBC & Chem 7: 03/24/18 07:10 03/24/18 07:10 Laboratory Results - last 24 hr 03/23/18 03/24/18 03/24/18 19:38 07:10 07:10 WBC 5.8 RBC 4.15 L Hgb 13.2 Hct 40.6 MCV 97.9 MCH 31.7 MCHC 32.4 RDW 18.5 H Plt Count 198 MPV 8.4 Sodium 138 Potassium 4.6 4.5 Chloride 97 L Carbon Dioxide 28.8 Anion Gap 12 BUN 40 H Creatinine 8.65 H Estimated GFR 7 L Random Glucose 92 Calcium 9.2 Phosphorus 6.3 H Total Bilirubin 0.4 AST 29 ALT 26 Alkaline Phosphatase 106 Total Protein 7.8 Albumin 3.2 L Assessment and Plan - Plan 68 years old male Complete heart block likely secondary to severe hyperkalemia-resolved- now SR Coronary artery disease status post bare-metal stent to the ostial first diagonal 03/[address] Chavira Essential hypertension Hyperlipidemia Chronic diastolic heart failure ejection fraction 45% with anterolateral hypokinesis on cardiac catheterization 03/01 Mild three-vessel coronary disease Patient is currently hemodynamic stable. Heart block has resolved with hemodialysis and correction of hyperkalemia Continue aspirin 160 mg daily and clopidogrel 75 mg daily/home medication. coreg 25 mg po bid Resp: History of tobaccoism/cigars quit 5 years ago. 40 year history good sats at room air encourage to continue smoking cessation History of bowel perforation status post reversal colostomy - stable - good po End-stage renal disease acute hypertensive nephrosclerosis status post hemodialysis Thursday//Thursday Secondary hyperparathyroidism - [facility] - HD- T//- to go tomorrow Continue cinacalcet 60 mg daily for secondary hyperparathyroidism FEN: Severe hyperpotassemia- resolved with HD- 4.5 today DC home today OP ff up with nephrology- with HD- T// Diaylsis diet Activity as tolerated Continue home meds Advise compliance with diet
== END 2018-03-24 16:25 | disposition home or self-care (01) ==
LOC: NEPC 12:23 → NEDA 18:25 → HIMC 23:30
PROVIDERS: ADMIT Internal Medicine; ATTEND Internal Medicine